=== PATIENT | male | born 1990 | race African-American/Black ===

== ENCOUNTER 2021-04-20 12:08 | Inpatient (IN) ==
[2021-04-21] MEDS ORDERED: SODIUM CHLORIDE 0.9% 1,550 ML IV ONE (01:14)
[2021-04-21] MEDS ORDERED: VANCOMYCIN INJ 1,250 MG in SODIUM CHLORIDE 0.9% 250 ML IV STA (01:15)
[2021-04-21] MEDS ORDERED: PIPERACILLIN/TAZOBACTAM 4.5 MG in SODIUM CHLORIDE 0.9% 100 ML IV STA (01:16)
[2021-04-21] MEDS ORDERED: CLINDAMYCIN INJ 900 MG/50 ML PREMIX IV STA (01:31)
[2021-04-21] MEDS ORDERED: MORPHINE 2 MG/1 ML SYRINGE IV STA (01:58)
[2021-04-21 02:09] LABS: Basophils % 0.1 % (0.0-0.8); Hematocrit 31.2 VOL% (42.0-52.0); Hemoglobin 9.4 GM/DL (14.0-18.0); Immature Granulocytes % 1.2 %; Immature Granulocytes Absolute 0.36 #; Lymphocytes # 2.1 10*3/uL (1.4-4.0); Mean Corpuscular HGB Conc 30.1 GM/DL (32-36); Mean Corpuscular Volume 84.6 FL (87-102); Mean Platelet Volume 9.3 FL (9.6-12.0); Monocytes % 7.2 % (1.7-12.7); Neutrophils % 84.5 % (38.7-73.9); Platelet Count 422 T/CUMM (130-400); Red Blood Count 3.69 MC/CUMM (3.8-5.5); Red Cell Distribution Width 13.4 % (9.3-17.3); White Blood Count 30.6 T/CUMM (4-12)
[2021-04-21 02:28] LABS: Band Neutrophils 1 % (0-10); Lymphocytes 9 % (20-55); Platelet Estimate Increased; Segmented Neutrophils 85 % (50-85); Total Cells Counted 100
[2021-04-21 02:29] LABS: Hypochromia Slight; Microcytosis Slight
[2021-04-21 02:33] LABS: Alanine Aminotransferase 16 U/L (16-61); Albumin 1.8 G/DL (3.4-5.0); Alkaline Phosphatase 178 U/L (45-117); Aspartate Amino Transferase 15 U/L (0-37); Bilirubin,Total < 0.39 MG/DL (0.20-1.00); Blood Urea Nitrogen 18 MG/DL (7-18); Calcium 9.4 MG/DL (8.5-10.1); Carbon Dioxide 18 MMOL/L (21-32); Estimated Glom Filtration Rate 76 ML/MIN; Glucose 315 MG/DL (74-106); Osmolality,Calculated 275.7 MOS/KG (273-304); Potassium 4.3 MMOL/L (3.5-5.1); Sodium 131 MMOL/L (136-145); Total Protein 8.2 G/DL (6.4-8.2)
[2021-04-21] MEDS ORDERED: GLUCAGON 1 MG VIAL IM PRN (03:03)
[2021-04-21] MEDS ORDERED: DEXTROSE 50% 25 GM/50 ML SYRINGE IV PRN (03:19)
[2021-04-21] MEDS: SODIUM CHLORIDE 0.9% 1,000 ML IV SCH ×3 (03:47→23:56)
[2021-04-21 05:07] LABS: INR 1.3; Partial Thromboplastin Time 30.5 SECS (23.8-32.1)
[2021-04-21] MEDS ORDERED: PHENYLEPHRINE 1 MG/10 ML SYRINGE IV ONE ×2 (09:11→16:29)
[2021-04-21] MEDS ORDERED: ALBUMIN 5% 12.5 GM/250 ML VIAL IV ONE (09:11)
[2021-04-21] MEDS ORDERED: PHENYLEPHRINE DRIP 20 MG/250 ML PREMIX IV ONE (09:11)
[2021-04-21] MEDS ORDERED: MIDAZOLAM 2 MG/2 ML VIAL ONE (09:28)
[2021-04-21] MEDS ORDERED: ROCURONIUM 50 MG/5 ML VIAL IV ONE (09:28)
[2021-04-21] MEDS ORDERED: LIDOCAINE 2% 5 ML VIAL ONE ×2 (09:28→16:29)
[2021-04-21] MEDS ORDERED: SUCCINYLCHOLINE 200 MG/10 ML VIAL ONE (09:28)
[2021-04-21] MEDS ORDERED: propofoL 200 MG/20 ML VIAL IV ONE ×2 (09:28→16:29)
[2021-04-21] MEDS ORDERED: fentaNYL 100 MCG/2 ML VIAL ONE (09:28)
[2021-04-21] MEDS: PANTOPRAZOLE 40 MG TABLET PO SCH (09:32)
[2021-04-21] MEDS: INSULIN REGULAR 100 UNIT/ML SUBCUT SCH ×4 (09:34→21:40)
[2021-04-21] MEDS ORDERED: FAMOTIDINE 20 MG/2 ML VIAL IV ONE (10:01)
[2021-04-21] MEDS ORDERED: SODIUM BICARBONATE 50 MEQ/50 ML VIAL IV ONE (10:10)
[2021-04-21] MEDS ORDERED: KETAMINE 500 MG/10 ML VIAL ONE (10:16)
[2021-04-21] MEDS ORDERED: SODIUM CHLORIDE 0.9% 1,000 ML IV ONE ×3 (11:30→16:04)
[2021-04-21] MEDS ORDERED: SEVOFLURANE 1 UNIT/15 MINUTE INH ONE (11:30)
[2021-04-21] MEDS ORDERED: ONDANSETRON 4 MG/2 ML VIAL ONE (11:30)
[2021-04-21] MEDS ORDERED: SUGAMMADEX 200 MG/2 ML VIAL IV ONE (11:37)
[2021-04-21 12:53] LABS: Basophils % 0.2 % (0.0-0.8); Eosinophils % 0.1 % (0.00-10.9); Hematocrit 26.2 VOL% (42.0-52.0); Hemoglobin 7.8 GM/DL (14.0-18.0); Immature Granulocytes % 1.9 %; Immature Granulocytes Absolute 0.47 #; Lymphocytes # 1.7 10*3/uL (1.4-4.0); Mean Corpuscular HGB Conc 29.8 GM/DL (32-36); Mean Corpuscular Volume 86.5 FL (87-102); Monocytes % 5.4 % (1.7-12.7); Neutrophils % 85.4 % (38.7-73.9); Platelet Count 336 T/CUMM (130-400); Red Blood Count 3.03 MC/CUMM (3.8-5.5); Red Cell Distribution Width 13.6 % (9.3-17.3); White Blood Count 24.9 T/CUMM (4-12)
[2021-04-21 13:07] LABS: Calcium 7.8 MG/DL (8.5-10.1); Osmolality,Calculated 283.8 MOS/KG (273-304); Potassium 4.1 MMOL/L (3.5-5.1)
[2021-04-21 13:15] LABS: Band Neutrophils 16 % (0-10); Lymphocytes 7 % (20-55); Platelet Estimate Normal; Segmented Neutrophils 68 % (50-85); Total Cells Counted 100
[2021-04-21 13:16] LABS: Anisocytosis Slight; Burr Cells 1+
[2021-04-21 13:24] LABS: Macrocytosis Slight
[2021-04-21] MEDS: MORPHINE 2 MG/1 ML SYRINGE IV PRN (14:24)
[2021-04-21] MEDS ORDERED: LIDOCAINE 2% TOP JELLY 20 ML VIAL INTRAURETH ONE (15:29)
[2021-04-21] MEDS: HYDROmorphone 2 MG/1 ML VIAL IV PRN (16:23)
[2021-04-21] MEDS: VANCOMYCIN INJ 750 MG in SODIUM CHLORIDE 0.9% 250 ML IV SCH (17:06)
[2021-04-21] MEDS: PIPERACILLIN/TAZOBACTAM 3,375 MG in SODIUM CHLORIDE 0.9% 100 ML IV SCH (18:18)
[2021-04-21 18:24] LABS: Bilirubin,Urine Negative (Negative); Blood, Urine Small mg/dL (Negative); Glucose,Urine (UA) Negative (Negative); Ketones,Urine 5 mg/dL (Negative); Mucus,Urine Few /LPF (Occasional); Nitrite,Urine Negative (Negative); Protein,Urine 30 MG/DL; RBC,Urine 853 /HPF (0-4); Urine Appearance CLOUDY (Clear); Urine Color Yellow (Yellow); Urine Specific Gravity 1.054 (1.001-1.035); Urine Urobilinogen < 2.0 EU/DL (<2.0)
[2021-04-21] MEDS ORDERED: LACTATED RINGERS 500 ML IV ONE (20:24)
[2021-04-21] MEDS: KETOCONAZOLE 2% CREAM 30 GM TUBE TOP SCH (21:45)
[2021-04-22] MEDS: PIPERACILLIN/TAZOBACTAM 3,375 MG in SODIUM CHLORIDE 0.9% 100 ML IV SCH ×3 (01:08→18:24)
[2021-04-22] MEDS ORDERED: LACTATED RINGERS 500 ML IV ONE (03:25)
[2021-04-22] MEDS: VANCOMYCIN INJ 750 MG in SODIUM CHLORIDE 0.9% 250 ML IV SCH ×2 (05:12→17:17)
[2021-04-22] MEDS: PHENYLEPHRINE DRIP 40 MG/250 ML PREMIX IV PRN (05:57)
[2021-04-22 06:06] LABS: Basophils % 0.2 % (0.0-0.8); Eosinophils % 0.1 % (0.00-10.9); Hematocrit 24.2 VOL% (42.0-52.0); Hemoglobin 7.3 GM/DL (14.0-18.0); Immature Granulocytes % 2.3 %; Immature Granulocytes Absolute 0.56 #; Lymphocytes # 2.1 10*3/uL (1.4-4.0); Lymphocytes % 8.5 % (21.2-54.2); Mean Corpuscular HGB Conc 30.2 GM/DL (32-36); Mean Corpuscular Volume 86.4 FL (87-102); Mean Platelet Volume 9.8 FL (9.6-12.0); Neutrophils % 81.9 % (38.7-73.9); Platelet Count 336 T/CUMM (130-400); Red Cell Distribution Width 13.7 % (9.3-17.3); White Blood Count 24.8 T/CUMM (4-12)
[2021-04-22 06:32] LABS: Anisocytosis Slight; Band Neutrophils 16 % (0-10); Burr Cells 1+; Lymphocytes 12 % (20-55); Metamyelocytes 2 %; Platelet Estimate Normal; Segmented Neutrophils 64 % (50-85); Total Cells Counted 100
[2021-04-22 06:33] LABS: Calcium 7.8 MG/DL (8.5-10.1); Osmolality,Calculated 279.3 MOS/KG (273-304); Potassium 3.5 MMOL/L (3.5-5.1)
[2021-04-22] MEDS: SODIUM CHLORIDE 0.9% 1,000 ML IV SCH ×2 (06:47→21:33)
[2021-04-22] MEDS ORDERED: POTASSIUM CHLORIDE RIDER 10 MEQ/100 ML PREMIX IV PRN (07:02)
[2021-04-22] MEDS: PANTOPRAZOLE 40 MG TABLET PO SCH (08:18)
[2021-04-22] MEDS: KETOCONAZOLE 2% CREAM 30 GM TUBE TOP SCH ×2 (08:19→21:28)
[2021-04-22] MEDS: MAGNESIUM SULF RIDER 2 GM/50 ML PREMIX IV PRN (08:19)
[2021-04-22] MEDS ORDERED: diphenhydrAMINE 50 MG/1 ML VIAL IV ONE (08:40)
[2021-04-22] MEDS: INSULIN REGULAR 100 UNIT/ML SUBCUT SCH ×4 (09:13→21:28)
[2021-04-22] MEDS: HYDROmorphone 2 MG/1 ML VIAL IV PRN ×4 (09:45→22:20)
[2021-04-22] MEDS: ACETAMINOPHEN 325 MG TABLET PO PRN (11:19)
[2021-04-22] MEDS ORDERED: SKIN HEALING OINT (AQUAPHOR) 50 GM TUBE TOP PRN (11:56)
[2021-04-22] MEDS: SODIUM HYPOCHLORITE 0.25% IRRIG 473 ML BOTTLE TOP SCH ×2 (15:53→21:27)
[2021-04-22] MEDS ORDERED: DIAZEPAM 5 MG TABLET PO ONE (21:10)
[2021-04-23] MEDS: PIPERACILLIN/TAZOBACTAM 3,375 MG in SODIUM CHLORIDE 0.9% 100 ML IV SCH ×3 (03:05→17:33)
[2021-04-23] MEDS: SODIUM CHLORIDE 0.9% 1,000 ML IV SCH (03:09)
[2021-04-23] MEDS: HYDROmorphone 2 MG/1 ML VIAL IV PRN (05:05)
[2021-04-23] MEDS ORDERED: NALOXONE 0.4 MG/ML VIAL ONE (05:30)
[2021-04-23 05:50] LABS: Basophils # 0.1 10*3/uL (0.0-0.2); Basophils % 0.2 % (0.0-0.8); Eosinophils # 0.1 10*3/uL (0.0-0.87); Eosinophils % 0.3 % (0.00-10.9); Hematocrit 27.6 VOL% (42.0-52.0); Hemoglobin 8.2 GM/DL (14.0-18.0); Immature Granulocytes % 1.4 %; Lymphocytes # 2.1 10*3/uL (1.4-4.0); Lymphocytes % 6.1 % (21.2-54.2); Mean Corpuscular HGB Conc 29.7 GM/DL (32-36); Mean Corpuscular Volume 86.3 FL (87-102); Mean Platelet Volume 9.5 FL (9.6-12.0); Platelet Count 483 T/CUMM (130-400); Red Cell Distribution Width 14.2 % (9.3-17.3); White Blood Count 34.6 T/CUMM (4-12)
[2021-04-23] MEDS: VANCOMYCIN INJ 750 MG in SODIUM CHLORIDE 0.9% 250 ML IV SCH ×2 (05:50→18:10)
[2021-04-23 06:00] LABS: Calcium 8.1 MG/DL (8.5-10.1); Potassium 3.3 MMOL/L (3.5-5.1)
[2021-04-23] MEDS: MAGNESIUM SULF RIDER 2 GM/50 ML PREMIX IV PRN (06:10)
[2021-04-23 06:25] LABS: Band Neutrophils 2 % (0-10); Lymphocytes 5 % (20-55); Platelet Estimate Increased; Segmented Neutrophils 86 % (50-85); Total Cells Counted 100
[2021-04-23 06:26] LABS: Hypochromia Slight; Microcytosis Slight
[2021-04-23] MEDS ORDERED: HYDROmorphone 2 MG/1 ML VIAL IV ONE (07:35)
[2021-04-23] MEDS ORDERED: NOREPINEPHRINE 8 MG in SODIUM CHLORIDE 0.9% 242 ML IV PRN (07:41)
[2021-04-23] MEDS ORDERED: LACTATED RINGERS 1,000 ML IV ONE ×2 (07:41→08:06)
[2021-04-23] MEDS: INSULIN REGULAR 100 UNIT/ML SUBCUT SCH ×4 (07:44→20:04)
[2021-04-23] MEDS: SODIUM HYPOCHLORITE 0.25% IRRIG 473 ML BOTTLE TOP SCH (08:09)
[2021-04-23] MEDS: KETOCONAZOLE 2% CREAM 30 GM TUBE TOP SCH ×2 (08:09→21:15)
[2021-04-23] MEDS: PHENYLEPHRINE DRIP 40 MG/250 ML PREMIX IV PRN (08:37)
[2021-04-23] MEDS: CLINDAMYCIN INJ 600 MG/50 ML PREMIX IV SCH ×2 (08:55→16:04)
[2021-04-23] MEDS: PANTOPRAZOLE 40 MG TABLET PO SCH (08:56)
[2021-04-23] MEDS: LACTATED RINGERS 1,000 ML IV SCH ×2 (09:12→16:03)
[2021-04-23] MEDS: HYDROCORTISONE 100 MG VIAL IV SCH (18:26)
[2021-04-23] MEDS: CHOLESTYRAMINE/ASPARTAME 4 GM PACK PO SCH (22:59)
[2021-04-24] MEDS: CLINDAMYCIN INJ 600 MG/50 ML PREMIX IV SCH ×3 (00:40→16:07)
[2021-04-24] MEDS: LACTATED RINGERS 1,000 ML IV SCH ×3 (02:40→21:30)
[2021-04-24] MEDS: PIPERACILLIN/TAZOBACTAM 3,375 MG in SODIUM CHLORIDE 0.9% 100 ML IV SCH ×3 (02:50→17:21)
[2021-04-24] MEDS: HYDROCORTISONE 100 MG VIAL IV SCH ×3 (03:25→17:50)
[2021-04-24 04:56] LABS: Basophils % 0.1 % (0.0-0.8); Hematocrit 26.9 VOL% (42.0-52.0); Immature Granulocytes % 1.2 %; Immature Granulocytes Absolute 0.44 #; Lymphocytes # 1.6 10*3/uL (1.4-4.0); Lymphocytes % 4.5 % (21.2-54.2); Mean Corpuscular HGB Conc 29.7 GM/DL (32-36); Mean Corpuscular Volume 85.7 FL (87-102); Mean Platelet Volume 9.7 FL (9.6-12.0); Monocytes % 1.8 % (1.7-12.7); Neutrophils % 92.4 % (38.7-73.9); Platelet Count 486 T/CUMM (130-400); Red Blood Count 3.14 MC/CUMM (3.8-5.5); Red Cell Distribution Width 14.4 % (9.3-17.3); White Blood Count 36.5 T/CUMM (4-12)
[2021-04-24 05:00] LABS: Calcium 8.1 MG/DL (8.5-10.1); Osmolality,Calculated 286.3 MOS/KG (273-304); Potassium 3.1 MMOL/L (3.5-5.1)
[2021-04-24 05:42] LABS: ABG Base Excess -9.6 MMOL/L (-2.5-2.5); ABG HCO3 16.6 MMOL/L (20-26); ABG Oxygen Saturation 93.3 % (95-100); ABG PCO2 29.4 MM HG (35-48); ABG PH 7.328 (7.35-7.45); ABG PO2 72.7 MM HG (80-95); ABG TCO2 14.5 MMOL/L (23-27)
[2021-04-24] MEDS: VANCOMYCIN INJ 750 MG in SODIUM CHLORIDE 0.9% 250 ML IV SCH ×2 (06:39→17:20)
[2021-04-24] MEDS ORDERED: POTASSIUM CHLORIDE 20 MEQ TABLET PO ONE (06:47)
[2021-04-24 06:56] LABS: % Iron Saturation 28.2 % (18-50); Ferritin 641.9 ng/mL (26-388)
[2021-04-24] MEDS: MAGNESIUM SULF RIDER 2 GM/50 ML PREMIX IV PRN (07:14)
[2021-04-24 08:49] LABS: Lymphocytes 8 % (20-55); Platelet Estimate Normal; Segmented Neutrophils 89 % (50-85); Total Cells Counted 100
[2021-04-24 08:50] LABS: Burr Cells Few; Hypochromia 2+; Polychromasia Slight; Schistocytes Few
[2021-04-24] MEDS ORDERED: DEXTROSE 50% 25 GM/50 ML SYRINGE IV PRN (08:50)
[2021-04-24] MEDS: INSULIN REGULAR 100 UNIT/ML SUBCUT SCH ×4 (08:55→21:15)
[2021-04-24] MEDS: CHOLESTYRAMINE/ASPARTAME 4 GM PACK PO SCH ×2 (09:06→21:30)
[2021-04-24] MEDS: PANTOPRAZOLE 40 MG TABLET PO SCH (09:07)
[2021-04-24] MEDS: ERGOCALCIFEROL 50,000 UNIT CAPSULE PO SCH (09:07)
[2021-04-24] MEDS: HYDROmorphone 2 MG/1 ML VIAL IV PRN ×2 (09:53→14:27)
[2021-04-24] MEDS: INSULIN GLARGINE 100 UNIT/ML SUBCUT SCH (12:59)
[2021-04-24] MEDS: SODIUM HYPOCHLORITE 0.25% IRRIG 473 ML BOTTLE TOP SCH (14:42)
[2021-04-24] MEDS: KETOCONAZOLE 2% CREAM 30 GM TUBE TOP SCH ×2 (14:42→21:16)
[2021-04-24] MEDS: MORPHINE 2 MG/1 ML SYRINGE IV PRN (16:06)
[2021-04-24] MEDS ORDERED: LIDOCAINE 2% TOP JELLY 20 ML VIAL INTRAURETH ONE (17:53)
[2021-04-24] MEDS ORDERED: LORazepam 2 MG/1 ML VIAL ONE (18:35)
[2021-04-24] MEDS ORDERED: LORazepam 2 MG/1 ML VIAL IV ONE (18:40)
[2021-04-24] MEDS: PHENYLEPHRINE DRIP 40 MG/250 ML PREMIX IV PRN (21:29)
[2021-04-25] MEDS: CLINDAMYCIN INJ 600 MG/50 ML PREMIX IV SCH ×4 (00:13→23:33)
[2021-04-25] MEDS: PIPERACILLIN/TAZOBACTAM 3,375 MG in SODIUM CHLORIDE 0.9% 100 ML IV SCH ×3 (02:13→17:35)
[2021-04-25] MEDS: HYDROCORTISONE 100 MG VIAL IV SCH ×3 (02:14→17:37)
[2021-04-25] MEDS: VANCOMYCIN INJ 750 MG in SODIUM CHLORIDE 0.9% 250 ML IV SCH (05:45)
[2021-04-25] MEDS: LACTATED RINGERS 1,000 ML IV SCH (07:45)
[2021-04-25 07:55] LABS: Basophils % 0.1 % (0.0-0.8); Hemoglobin 8.7 GM/DL (14.0-18.0); Immature Granulocytes % 2.1 %; Immature Granulocytes Absolute 0.76 #; Lymphocytes % 5.5 % (21.2-54.2); Mean Corpuscular Volume 84.1 FL (87-102); Mean Platelet Volume 8.9 FL (9.6-12.0); Monocytes % 2.5 % (1.7-12.7); Neutrophils % 89.8 % (38.7-73.9); Platelet Count 579 T/CUMM (130-400); Red Blood Count 3.45 MC/CUMM (3.8-5.5); Red Cell Distribution Width 14.3 % (9.3-17.3); White Blood Count 36.3 T/CUMM (4-12)
[2021-04-25 08:19] LABS: Alanine Aminotransferase 14 U/L (16-61); Albumin 1.1 G/DL (3.4-5.0); Alkaline Phosphatase 161 U/L (45-117); Aspartate Amino Transferase 8 U/L (0-37); Bilirubin,Total < 0.39 MG/DL (0.20-1.00); Blood Urea Nitrogen 13 MG/DL (7-18); Carbon Dioxide 20 MMOL/L (21-32); Estimated Glom Filtration Rate 154 ML/MIN; Glucose 125 MG/DL (74-106); Osmolality,Calculated 283.1 MOS/KG (273-304); Potassium 2.8 MMOL/L (3.5-5.1); Sodium 142 MMOL/L (136-145); Total Protein 5.9 G/DL (6.4-8.2)
[2021-04-25] MEDS ORDERED: MAGNESIUM SULF RIDER 2 GM/50 ML PREMIX IV ONE (08:33)
[2021-04-25] MEDS: KETOCONAZOLE 2% CREAM 30 GM TUBE TOP SCH ×2 (08:55→20:49)
[2021-04-25] MEDS: SODIUM HYPOCHLORITE 0.25% IRRIG 473 ML BOTTLE TOP SCH (08:55)
[2021-04-25] MEDS: INSULIN REGULAR 100 UNIT/ML SUBCUT SCH ×4 (09:15→20:49)
[2021-04-25] MEDS ORDERED: POTASSIUM CHLORIDE INJ 20 MEQ in LACTATED RINGERS 1,000 ML IV SCH (10:00)
[2021-04-25] MEDS: PANTOPRAZOLE 40 MG TABLET PO SCH (10:10)
[2021-04-25] MEDS: CHOLESTYRAMINE/ASPARTAME 4 GM PACK PO SCH ×2 (10:10→22:45)
[2021-04-25] MEDS: OXYBUTYNIN XL 10 MG TABLET PO SCH (10:10)
[2021-04-25] MEDS: POTASSIUM CHLORIDE 20 MEQ TABLET PO SCH ×2 (10:10→13:02)
[2021-04-25] MEDS: INSULIN GLARGINE 100 UNIT/ML SUBCUT SCH (10:10)
[2021-04-25 10:47] LABS: Lymphocytes 2 % (20-55); Segmented Neutrophils 98 % (50-85); Total Cells Counted 100
[2021-04-25 10:48] LABS: Hypochromia 2+; Microcytosis 1+; Platelet Estimate Increased; Polychromasia Slight; Tear Drop Cells Few
[2021-04-25] MEDS: HYDROmorphone 2 MG/1 ML VIAL IV PRN ×2 (16:09→20:45)
[2021-04-25 16:29] LABS: Calcium 7.7 MG/DL (8.5-10.1); Osmolality,Calculated 291.8 MOS/KG (273-304)
[2021-04-25] MEDS: POTASSIUM CHLORIDE 20 MEQ TABLET PO PRN ×3 (17:59→23:33)
[2021-04-26] MEDS: HYDROCORTISONE 100 MG VIAL IV SCH ×3 (02:00→18:31)
[2021-04-26] MEDS: POTASSIUM CHLORIDE 20 MEQ TABLET PO PRN ×4 (02:02→15:45)
[2021-04-26] MEDS: PIPERACILLIN/TAZOBACTAM 3,375 MG in SODIUM CHLORIDE 0.9% 100 ML IV SCH ×3 (02:03→18:14)
[2021-04-26 04:48] LABS: Basophils % 0.1 % (0.0-0.8); Hemoglobin 8.4 GM/DL (14.0-18.0); Immature Granulocytes % 1.5 %; Lymphocytes # 1.7 10*3/uL (1.4-4.0); Lymphocytes % 6.4 % (21.2-54.2); Mean Corpuscular Volume 84.8 FL (87-102); Mean Platelet Volume 8.6 FL (9.6-12.0); Monocytes % 3.5 % (1.7-12.7); Neutrophils % 88.5 % (38.7-73.9); Platelet Count 572 T/CUMM (130-400); Red Cell Distribution Width 14.5 % (9.3-17.3); White Blood Count 26.4 T/CUMM (4-12)
[2021-04-26 05:04] LABS: Calcium 7.7 MG/DL (8.5-10.1); Osmolality,Calculated 298.4 MOS/KG (273-304); Potassium 3.3 MMOL/L (3.5-5.1)
[2021-04-26 05:06] LABS: Hypochromia 1+; Lymphocytes 4 % (20-55); Microcytosis 1+; Platelet Estimate Adequate; Segmented Neutrophils 93 % (50-85); Total Cells Counted 100
[2021-04-26] MEDS ORDERED: INSULIN GLARGINE 100 UNIT/ML SUBCUT SCH (09:00)
[2021-04-26] MEDS: PANTOPRAZOLE 40 MG TABLET PO SCH (09:30)
[2021-04-26] MEDS: OXYBUTYNIN XL 10 MG TABLET PO SCH (09:30)
[2021-04-26] MEDS: INSULIN REGULAR 100 UNIT/ML SUBCUT SCH ×4 (09:30→21:30)
[2021-04-26] MEDS: CHOLESTYRAMINE/ASPARTAME 4 GM PACK PO SCH ×2 (09:30→21:30)
[2021-04-26] MEDS: KETOCONAZOLE 2% CREAM 30 GM TUBE TOP SCH ×2 (09:30→23:55)
[2021-04-26] MEDS: CLINDAMYCIN INJ 600 MG/50 ML PREMIX IV SCH ×2 (09:32→16:05)
[2021-04-26] MEDS: MAGNESIUM SULF RIDER 2 GM/50 ML PREMIX IV PRN (10:05)
[2021-04-26] MEDS: SODIUM HYPOCHLORITE 0.25% IRRIG 473 ML BOTTLE TOP SCH (11:00)
[2021-04-26] MEDS: ONDANSETRON 4 MG/2 ML VIAL IV PRN (21:29)
[2021-04-26] MEDS: ACETAMINOPHEN 325 MG TABLET PO PRN (23:10)
[2021-04-27] MEDS: HYDROCORTISONE 100 MG VIAL IV SCH ×2 (03:05→14:00)
[2021-04-27] MEDS: PIPERACILLIN/TAZOBACTAM 3,375 MG in SODIUM CHLORIDE 0.9% 100 ML IV SCH ×3 (03:05→18:24)
[2021-04-27] MEDS: CLINDAMYCIN INJ 600 MG/50 ML PREMIX IV SCH ×2 (03:05→09:52)
[2021-04-27] MEDS: ONDANSETRON 4 MG/2 ML VIAL IV PRN (03:52)
[2021-04-27 04:00] LABS: Basophils % 0.1 % (0.0-0.8); Eosinophils % 0.1 % (0.00-10.9); Hematocrit 25.5 VOL% (42.0-52.0); Hemoglobin 7.5 GM/DL (14.0-18.0); Immature Granulocytes Absolute 0.18 #; Lymphocytes # 2.2 10*3/uL (1.4-4.0); Lymphocytes % 11.5 % (21.2-54.2); Mean Corpuscular HGB Conc 29.4 GM/DL (32-36); Mean Corpuscular Volume 86.7 FL (87-102); Mean Platelet Volume 8.3 FL (9.6-12.0); Monocytes % 6.2 % (1.7-12.7); Neutrophils % 81.1 % (38.7-73.9); Platelet Count 468 T/CUMM (130-400); Red Blood Count 2.94 MC/CUMM (3.8-5.5); Red Cell Distribution Width 14.7 % (9.3-17.3); White Blood Count 18.8 T/CUMM (4-12)
[2021-04-27 04:27] LABS: Calcium 7.6 MG/DL (8.5-10.1); Osmolality,Calculated 298.4 MOS/KG (273-304); Potassium 3.4 MMOL/L (3.5-5.1)
[2021-04-27] MEDS: POTASSIUM CHLORIDE 20 MEQ TABLET PO PRN ×3 (06:42→18:24)
[2021-04-27] MEDS: MAGNESIUM SULF RIDER 2 GM/50 ML PREMIX IV PRN (07:00)
[2021-04-27] MEDS: SODIUM HYPOCHLORITE 0.25% IRRIG 473 ML BOTTLE TOP SCH (08:50)
[2021-04-27] MEDS: KETOCONAZOLE 2% CREAM 30 GM TUBE TOP SCH ×2 (08:55→20:22)
[2021-04-27] MEDS: INSULIN REGULAR 100 UNIT/ML SUBCUT SCH ×4 (09:41→20:21)
[2021-04-27] MEDS: OXYBUTYNIN XL 10 MG TABLET PO SCH (09:51)
[2021-04-27] MEDS: CHOLESTYRAMINE/ASPARTAME 4 GM PACK PO SCH ×2 (09:52→22:30)
[2021-04-27] MEDS: PANTOPRAZOLE 40 MG TABLET PO SCH (09:52)
[2021-04-27] MEDS: INSULIN GLARGINE 100 UNIT/ML SUBCUT SCH (09:52)
[2021-04-27] MEDS: ACETAMINOPHEN 325 MG TABLET PO PRN (22:29)
[2021-04-28] MEDS: MORPHINE 2 MG/1 ML SYRINGE IV PRN (00:24)
[2021-04-28] MEDS: HYDROCORTISONE 100 MG VIAL IV SCH ×2 (02:00→13:40)
[2021-04-28] MEDS: ZINC OXIDE PASTE 113 GM TUBE TOP PRN ×2 (02:03→08:50)
[2021-04-28] MEDS: PIPERACILLIN/TAZOBACTAM 3,375 MG in SODIUM CHLORIDE 0.9% 100 ML IV SCH ×3 (02:03→18:45)
[2021-04-28 04:51] LABS: Basophils % 0.1 % (0.0-0.8); Eosinophils # 0.1 10*3/uL (0.0-0.87); Eosinophils % 0.6 % (0.00-10.9); Hematocrit 27.7 VOL% (42.0-52.0); Hemoglobin 8.1 GM/DL (14.0-18.0); Immature Granulocytes % 0.9 %; Immature Granulocytes Absolute 0.15 #; Lymphocytes % 12.4 % (21.2-54.2); Mean Corpuscular HGB Conc 29.2 GM/DL (32-36); Mean Corpuscular Volume 85.8 FL (87-102); Mean Platelet Volume 8.5 FL (9.6-12.0); Monocytes % 4.4 % (1.7-12.7); Neutrophils % 81.6 % (38.7-73.9); Platelet Count 494 T/CUMM (130-400); Red Blood Count 3.23 MC/CUMM (3.8-5.5); White Blood Count 15.9 T/CUMM (4-12)
[2021-04-28 05:07] LABS: Calcium 7.7 MG/DL (8.5-10.1); Osmolality,Calculated 293.6 MOS/KG (273-304); Potassium 3.6 MMOL/L (3.5-5.1)
[2021-04-28] MEDS: MAGNESIUM SULF RIDER 2 GM/50 ML PREMIX IV PRN (05:55)
[2021-04-28] MEDS: POTASSIUM CHLORIDE 20 MEQ TABLET PO PRN ×2 (05:57→09:37)
[2021-04-28] MEDS: INSULIN REGULAR 100 UNIT/ML SUBCUT SCH ×4 (07:51→20:26)
[2021-04-28] MEDS: SODIUM HYPOCHLORITE 0.25% IRRIG 473 ML BOTTLE TOP SCH (08:45)
[2021-04-28] MEDS: KETOCONAZOLE 2% CREAM 30 GM TUBE TOP SCH ×2 (08:50→21:48)
[2021-04-28] MEDS: PANTOPRAZOLE 40 MG TABLET PO SCH (09:36)
[2021-04-28] MEDS: CHOLESTYRAMINE/ASPARTAME 4 GM PACK PO SCH ×2 (09:36→21:37)
[2021-04-28] MEDS: OXYBUTYNIN XL 10 MG TABLET PO SCH (09:36)
[2021-04-28] MEDS: INSULIN GLARGINE 100 UNIT/ML SUBCUT SCH (09:37)
[2021-04-28] MEDS: SERTRALINE 25 MG TABLET PO SCH (11:27)
[2021-04-29] MEDS: HYDROCORTISONE 100 MG VIAL IV SCH ×2 (02:12→13:47)
[2021-04-29] MEDS: MORPHINE 2 MG/1 ML SYRINGE IV PRN ×2 (05:19→12:28)
[2021-04-29] MEDS: INSULIN REGULAR 100 UNIT/ML SUBCUT SCH ×4 (08:52→21:20)
[2021-04-29] MEDS: OXYBUTYNIN XL 10 MG TABLET PO SCH (10:00)
[2021-04-29] MEDS: CHOLESTYRAMINE/ASPARTAME 4 GM PACK PO SCH ×2 (10:00→21:21)
[2021-04-29] MEDS: PANTOPRAZOLE 40 MG TABLET PO SCH (10:00)
[2021-04-29] MEDS: INSULIN GLARGINE 100 UNIT/ML SUBCUT SCH (10:24)
[2021-04-29] MEDS: KETOCONAZOLE 2% CREAM 30 GM TUBE TOP SCH ×2 (10:25→21:20)
[2021-04-29] MEDS: SERTRALINE 25 MG TABLET PO SCH (10:30)
[2021-04-29] MEDS: SODIUM HYPOCHLORITE 0.25% IRRIG 473 ML BOTTLE TOP SCH (13:47)
[2021-04-29] MEDS ORDERED: metroNIDAZOLE INJ 500 MG/100 ML PREMIX IV SCH (14:00)
[2021-04-29] MEDS: metroNIDAZOLE 500 MG TABLET PO SCH ×2 (15:20→21:16)
[2021-04-29] MEDS: cefTRIAXone 1,000 MG in SODIUM CHLORIDE 0.9% 100 ML IV SCH (15:20)
[2021-04-30] MEDS: MORPHINE 2 MG/1 ML SYRINGE IV PRN ×2 (01:01→17:22)
[2021-04-30] MEDS: HYDROCORTISONE 100 MG VIAL IV SCH (01:02)
[2021-04-30 05:00] LABS: Basophils % 0.1 % (0.0-0.8); Eosinophils # 0.1 10*3/uL (0.0-0.87); Eosinophils % 0.4 % (0.00-10.9); Hematocrit 25.9 VOL% (42.0-52.0); Hemoglobin 7.4 GM/DL (14.0-18.0); Immature Granulocytes % 0.9 %; Immature Granulocytes Absolute 0.16 #; Lymphocytes # 2.5 10*3/uL (1.4-4.0); Lymphocytes % 13.2 % (21.2-54.2); Mean Corpuscular HGB Conc 28.6 GM/DL (32-36); Mean Corpuscular Volume 87.5 FL (87-102); Mean Platelet Volume 8.8 FL (9.6-12.0); Monocytes % 3.9 % (1.7-12.7); Neutrophils % 81.5 % (38.7-73.9); Platelet Count 466 T/CUMM (130-400); Red Blood Count 2.96 MC/CUMM (3.8-5.5); Red Cell Distribution Width 15.5 % (9.3-17.3); White Blood Count 18.5 T/CUMM (4-12)
[2021-04-30 05:17] LABS: Calcium 7.9 MG/DL (8.5-10.1); Osmolality,Calculated 286.1 MOS/KG (273-304); Potassium 3.6 MMOL/L (3.5-5.1)
[2021-04-30 05:31] LABS: Acanthocytes Few; Hypochromia 1+; Microcytosis 1+; Ovalocytes Slight
[2021-04-30 05:32] LABS: Platelet Estimate Increased
[2021-04-30] MEDS ORDERED: MAGNESIUM SULF RIDER 4 GM/100 ML PREMIX IV ONE (08:00)
[2021-04-30] MEDS: PANTOPRAZOLE 40 MG TABLET PO SCH (09:01)
[2021-04-30] MEDS: OXYBUTYNIN XL 10 MG TABLET PO SCH (09:01)
[2021-04-30] MEDS: CHOLESTYRAMINE/ASPARTAME 4 GM PACK PO SCH ×2 (09:01→21:36)
[2021-04-30] MEDS: metroNIDAZOLE 500 MG TABLET PO SCH ×3 (09:01→21:36)
[2021-04-30] MEDS: SERTRALINE 25 MG TABLET PO SCH (09:01)
[2021-04-30] MEDS: INSULIN GLARGINE 100 UNIT/ML SUBCUT SCH (09:28)
[2021-04-30] MEDS: INSULIN REGULAR 100 UNIT/ML SUBCUT SCH ×4 (09:28→21:37)
[2021-04-30] MEDS: SODIUM HYPOCHLORITE 0.25% IRRIG 473 ML BOTTLE TOP SCH (09:29)
[2021-04-30] MEDS: KETOCONAZOLE 2% CREAM 30 GM TUBE TOP SCH ×2 (10:32→21:36)
[2021-04-30] MEDS: cefTRIAXone 1,000 MG in SODIUM CHLORIDE 0.9% 100 ML IV SCH (13:43)
[2021-05-01] MEDS: KETOCONAZOLE 2% CREAM 30 GM TUBE TOP SCH ×3 (01:08→21:52)
[2021-05-01 05:40] LABS: Basophils % 0.1 % (0.0-0.8); Eosinophils # 0.2 10*3/uL (0.0-0.87); Eosinophils % 1.1 % (0.00-10.9); Hematocrit 24.8 VOL% (42.0-52.0); Hemoglobin 7.3 GM/DL (14.0-18.0); Immature Granulocytes % 0.6 %; Immature Granulocytes Absolute 0.09 #; Lymphocytes % 21.4 % (21.2-54.2); Mean Corpuscular HGB Conc 29.4 GM/DL (32-36); Mean Corpuscular Volume 86.1 FL (87-102); Monocytes % 6.8 % (1.7-12.7); Platelet Count 462 T/CUMM (130-400); Red Blood Count 2.88 MC/CUMM (3.8-5.5); Red Cell Distribution Width 15.6 % (9.3-17.3)
[2021-05-01 06:07] LABS: Calcium 7.5 MG/DL (8.5-10.1); Osmolality,Calculated 280.3 MOS/KG (273-304); Potassium 3.5 MMOL/L (3.5-5.1)
[2021-05-01] MEDS: INSULIN REGULAR 100 UNIT/ML SUBCUT SCH ×4 (07:13→21:51)
[2021-05-01] MEDS ORDERED: SODIUM CHLORIDE 0.9% 1,000 ML IV PRN (08:11)
[2021-05-01] MEDS: SODIUM HYPOCHLORITE 0.25% IRRIG 473 ML BOTTLE TOP SCH (09:58)
[2021-05-01] MEDS: CHOLESTYRAMINE/ASPARTAME 4 GM PACK PO SCH ×2 (09:59→21:16)
[2021-05-01] MEDS: INSULIN GLARGINE 100 UNIT/ML SUBCUT SCH (09:59)
[2021-05-01] MEDS: ERGOCALCIFEROL 50,000 UNIT CAPSULE PO SCH (10:00)
[2021-05-01] MEDS: PANTOPRAZOLE 40 MG TABLET PO SCH (10:00)
[2021-05-01] MEDS: metroNIDAZOLE 500 MG TABLET PO SCH ×3 (10:00→21:16)
[2021-05-01] MEDS: OXYBUTYNIN XL 10 MG TABLET PO SCH (10:00)
[2021-05-01] MEDS: SERTRALINE 25 MG TABLET PO SCH (10:01)
[2021-05-01] MEDS: cefTRIAXone 1,000 MG in SODIUM CHLORIDE 0.9% 100 ML IV SCH (15:38)
[2021-05-02 05:47] LABS: Basophils % 0.1 % (0.0-0.8); Eosinophils # 0.2 10*3/uL (0.0-0.87); Hematocrit 27.2 VOL% (42.0-52.0); Immature Granulocytes % 0.6 %; Immature Granulocytes Absolute 0.08 #; Lymphocytes # 3.4 10*3/uL (1.4-4.0); Lymphocytes % 23.2 % (21.2-54.2); Mean Corpuscular HGB Conc 29.4 GM/DL (32-36); Mean Corpuscular Volume 86.9 FL (87-102); Mean Platelet Volume 9.1 FL (9.6-12.0); Monocytes % 6.6 % (1.7-12.7); Neutrophils % 68.5 % (38.7-73.9); Platelet Count 402 T/CUMM (130-400); Red Blood Count 3.13 MC/CUMM (3.8-5.5); Red Cell Distribution Width 15.4 % (9.3-17.3); White Blood Count 14.5 T/CUMM (4-12)
[2021-05-02 06:23] LABS: Calcium 7.7 MG/DL (8.5-10.1); Potassium 3.3 MMOL/L (3.5-5.1)
[2021-05-02] MEDS: INSULIN REGULAR 100 UNIT/ML SUBCUT SCH ×4 (07:16→23:28)
[2021-05-02] MEDS ORDERED: MAGNESIUM SULF RIDER 4 GM/100 ML PREMIX IV ONE (08:09)
[2021-05-02] MEDS: PANTOPRAZOLE 40 MG TABLET PO SCH (09:12)
[2021-05-02] MEDS: INSULIN GLARGINE 100 UNIT/ML SUBCUT SCH (09:12)
[2021-05-02] MEDS: POTASSIUM CHLORIDE 20 MEQ TABLET PO PRN (09:12)
[2021-05-02] MEDS: OXYBUTYNIN XL 10 MG TABLET PO SCH (09:12)
[2021-05-02] MEDS: metroNIDAZOLE 500 MG TABLET PO SCH ×3 (09:12→21:36)
[2021-05-02] MEDS: SODIUM HYPOCHLORITE 0.25% IRRIG 473 ML BOTTLE TOP SCH (09:12)
[2021-05-02] MEDS: SERTRALINE 25 MG TABLET PO SCH (09:12)
[2021-05-02] MEDS: KETOCONAZOLE 2% CREAM 30 GM TUBE TOP SCH ×2 (09:13→21:34)
[2021-05-02] MEDS: CHOLESTYRAMINE/ASPARTAME 4 GM PACK PO SCH ×2 (09:13→21:32)
[2021-05-02] MEDS: cefTRIAXone 1,000 MG in SODIUM CHLORIDE 0.9% 100 ML IV SCH (13:05)
[2021-05-02] MEDS: ACETAMINOPHEN 325 MG TABLET PO PRN (21:34)
[2021-05-03 05:06] LABS: Basophils % 0.2 % (0.0-0.8); Eosinophils # 0.2 10*3/uL (0.0-0.87); Hematocrit 27.9 VOL% (42.0-52.0); Hemoglobin 8.4 GM/DL (14.0-18.0); Immature Granulocytes % 0.6 %; Immature Granulocytes Absolute 0.11 #; Lymphocytes # 2.8 10*3/uL (1.4-4.0); Lymphocytes % 16.2 % (21.2-54.2); Mean Corpuscular HGB Conc 30.1 GM/DL (32-36); Mean Corpuscular Volume 86.6 FL (87-102); Mean Platelet Volume 9.3 FL (9.6-12.0); Monocytes % 6.4 % (1.7-12.7); Neutrophils % 75.6 % (38.7-73.9); Platelet Count 405 T/CUMM (130-400); Red Blood Count 3.22 MC/CUMM (3.8-5.5); Red Cell Distribution Width 15.5 % (9.3-17.3); White Blood Count 17.3 T/CUMM (4-12)
[2021-05-03 05:31] LABS: Calcium 7.7 MG/DL (8.5-10.1); Osmolality,Calculated 281.1 MOS/KG (273-304); Potassium 3.2 MMOL/L (3.5-5.1)
[2021-05-03] MEDS ORDERED: MAGNESIUM SULF RIDER 4 GM/100 ML PREMIX IV ONE (08:30)
[2021-05-03] MEDS ORDERED: POTASSIUM CHLORIDE 20 MEQ TABLET PO ONE (09:30)
[2021-05-03] MEDS: MAGNESIUM SULF RIDER 2 GM/50 ML PREMIX IV PRN (10:00)
[2021-05-03] MEDS: INSULIN REGULAR 100 UNIT/ML SUBCUT SCH ×4 (10:48→21:08)
[2021-05-03] MEDS: KETOCONAZOLE 2% CREAM 30 GM TUBE TOP SCH ×2 (11:59→21:09)
[2021-05-03] MEDS: PANTOPRAZOLE 40 MG TABLET PO SCH (11:59)
[2021-05-03] MEDS: INSULIN GLARGINE 100 UNIT/ML SUBCUT SCH (11:59)
[2021-05-03] MEDS: OXYBUTYNIN XL 10 MG TABLET PO SCH (11:59)
[2021-05-03] MEDS: SERTRALINE 25 MG TABLET PO SCH (12:00)
[2021-05-03] MEDS: ENOXAPARIN 40 MG/0.4 ML SYRINGE SUBCUT SCH (12:00)
[2021-05-03] MEDS: CHOLESTYRAMINE/ASPARTAME 4 GM PACK PO SCH ×2 (12:00→21:08)
[2021-05-03] MEDS: PIPERACILLIN/TAZOBACTAM 3,375 MG in SODIUM CHLORIDE 0.9% 100 ML IV SCH ×2 (12:05→21:08)
[2021-05-03] MEDS: SODIUM HYPOCHLORITE 0.25% IRRIG 473 ML BOTTLE TOP SCH (14:40)
[2021-05-03] MEDS: metroNIDAZOLE 500 MG TABLET PO SCH (14:42)
[2021-05-03] MEDS: MORPHINE 2 MG/1 ML SYRINGE IV PRN (21:08)
[2021-05-03] MEDS: ZINC OXIDE PASTE 113 GM TUBE TOP PRN (21:09)
[2021-05-04] MEDS: PIPERACILLIN/TAZOBACTAM 3,375 MG in SODIUM CHLORIDE 0.9% 100 ML IV SCH ×3 (04:50→21:32)
[2021-05-04] MEDS: MORPHINE 2 MG/1 ML SYRINGE IV PRN ×2 (05:06→21:29)
[2021-05-04 05:58] LABS: Basophils % 0.2 % (0.0-0.8); Eosinophils # 0.2 10*3/uL (0.0-0.87); Eosinophils % 1.1 % (0.00-10.9); Hematocrit 26.4 VOL% (42.0-52.0); Hemoglobin 7.9 GM/DL (14.0-18.0); Immature Granulocytes % 0.5 %; Immature Granulocytes Absolute 0.09 #; Lymphocytes # 3.1 10*3/uL (1.4-4.0); Lymphocytes % 17.6 % (21.2-54.2); Mean Corpuscular HGB Conc 29.9 GM/DL (32-36); Mean Corpuscular Volume 85.4 FL (87-102); Mean Platelet Volume 9.4 FL (9.6-12.0); Monocytes % 6.9 % (1.7-12.7); Neutrophils % 73.7 % (38.7-73.9); Platelet Count 353 T/CUMM (130-400); Red Blood Count 3.09 MC/CUMM (3.8-5.5); Red Cell Distribution Width 15.5 % (9.3-17.3); White Blood Count 17.5 T/CUMM (4-12)
[2021-05-04 06:25] LABS: Calcium 7.6 MG/DL (8.5-10.1); Osmolality,Calculated 280.3 MOS/KG (273-304); Potassium 3.3 MMOL/L (3.5-5.1)
[2021-05-04] MEDS: SERTRALINE 25 MG TABLET PO SCH (09:23)
[2021-05-04] MEDS: ENOXAPARIN 40 MG/0.4 ML SYRINGE SUBCUT SCH (09:23)
[2021-05-04] MEDS: OXYBUTYNIN XL 10 MG TABLET PO SCH (09:23)
[2021-05-04] MEDS: CHOLESTYRAMINE/ASPARTAME 4 GM PACK PO SCH ×2 (09:23→21:37)
[2021-05-04] MEDS: INSULIN GLARGINE 100 UNIT/ML SUBCUT SCH (09:23)
[2021-05-04] MEDS: PANTOPRAZOLE 40 MG TABLET PO SCH (09:23)
[2021-05-04] MEDS: KETOCONAZOLE 2% CREAM 30 GM TUBE TOP SCH ×2 (09:55→21:38)
[2021-05-04] MEDS: SODIUM HYPOCHLORITE 0.25% IRRIG 473 ML BOTTLE TOP SCH (09:55)
[2021-05-04] MEDS: INSULIN REGULAR 100 UNIT/ML SUBCUT SCH ×4 (09:55→21:31)
[2021-05-04] MEDS ORDERED: POTASSIUM CHLORIDE 20 MEQ TABLET PO ONE (10:30)
[2021-05-05] MEDS: PIPERACILLIN/TAZOBACTAM 3,375 MG in SODIUM CHLORIDE 0.9% 100 ML IV SCH ×3 (03:57→21:46)
[2021-05-05 05:57] LABS: Basophils % 0.2 % (0.0-0.8); Calcium 7.6 MG/DL (8.5-10.1); Eosinophils # 0.2 10*3/uL (0.0-0.87); Eosinophils % 1.1 % (0.00-10.9); Hematocrit 27.1 VOL% (42.0-52.0); Immature Granulocytes % 0.5 %; Immature Granulocytes Absolute 0.09 #; Lymphocytes # 2.6 10*3/uL (1.4-4.0); Lymphocytes % 15.3 % (21.2-54.2); Mean Corpuscular HGB Conc 29.5 GM/DL (32-36); Mean Corpuscular Volume 86.9 FL (87-102); Mean Platelet Volume 9.5 FL (9.6-12.0); Monocytes % 7.1 % (1.7-12.7); Neutrophils % 75.8 % (38.7-73.9); Osmolality,Calculated 280.1 MOS/KG (273-304); Platelet Count 336 T/CUMM (130-400); Potassium 3.7 MMOL/L (3.5-5.1); Red Blood Count 3.12 MC/CUMM (3.8-5.5); Red Cell Distribution Width 15.7 % (9.3-17.3); White Blood Count 17.1 T/CUMM (4-12)
[2021-05-05] MEDS: MORPHINE 2 MG/1 ML SYRINGE IV PRN ×3 (07:12→19:34)
[2021-05-05] MEDS: INSULIN REGULAR 100 UNIT/ML SUBCUT SCH ×4 (07:56→20:15)
[2021-05-05] MEDS: PANTOPRAZOLE 40 MG TABLET PO SCH (08:31)
[2021-05-05] MEDS: OXYBUTYNIN XL 10 MG TABLET PO SCH (08:31)
[2021-05-05] MEDS: SERTRALINE 25 MG TABLET PO SCH (08:31)
[2021-05-05] MEDS: MAGNESIUM SULF RIDER 4 GM/100 ML PREMIX IV PRN (08:31)
[2021-05-05] MEDS: SODIUM HYPOCHLORITE 0.25% IRRIG 473 ML BOTTLE TOP SCH (08:46)
[2021-05-05] MEDS: INSULIN GLARGINE 100 UNIT/ML SUBCUT SCH (08:46)
[2021-05-05] MEDS: KETOCONAZOLE 2% CREAM 30 GM TUBE TOP SCH ×2 (08:46→21:47)
[2021-05-05] MEDS: CHOLESTYRAMINE/ASPARTAME 4 GM PACK PO SCH ×2 (10:19→21:46)
[2021-05-05] MEDS: ENOXAPARIN 40 MG/0.4 ML SYRINGE SUBCUT SCH (10:19)
[2021-05-05] MEDS: VANCOMYCIN INJ 1,000 MG in SODIUM CHLORIDE 0.9% 250 ML IV SCH (12:07)
[2021-05-06] MEDS: VANCOMYCIN INJ 1,000 MG in SODIUM CHLORIDE 0.9% 250 ML IV SCH (01:50)
[2021-05-06] MEDS: PIPERACILLIN/TAZOBACTAM 3,375 MG in SODIUM CHLORIDE 0.9% 100 ML IV SCH (04:42)
[2021-05-06] MEDS: MORPHINE 2 MG/1 ML SYRINGE IV PRN ×3 (04:42→19:50)
[2021-05-06 08:29] LABS: Basophils % 0.2 % (0.0-0.8); Eosinophils # 0.1 10*3/uL (0.0-0.87); Eosinophils % 0.6 % (0.00-10.9); Hematocrit 26.3 VOL% (42.0-52.0); Hemoglobin 7.8 GM/DL (14.0-18.0); Immature Granulocytes % 0.6 %; Lymphocytes # 2.7 10*3/uL (1.4-4.0); Lymphocytes % 16.2 % (21.2-54.2); Mean Corpuscular HGB Conc 29.7 GM/DL (32-36); Mean Corpuscular Volume 87.1 FL (87-102); Mean Platelet Volume 8.9 FL (9.6-12.0); Neutrophils % 76.4 % (38.7-73.9); Platelet Count 302 T/CUMM (130-400); Red Blood Count 3.02 MC/CUMM (3.8-5.5); Red Cell Distribution Width 15.9 % (9.3-17.3)
[2021-05-06] MEDS: SERTRALINE 25 MG TABLET PO SCH (08:44)
[2021-05-06] MEDS: OXYBUTYNIN XL 10 MG TABLET PO SCH (08:44)
[2021-05-06] MEDS: PANTOPRAZOLE 40 MG TABLET PO SCH (08:44)
[2021-05-06 08:51] LABS: Calcium 7.4 MG/DL (8.5-10.1); Osmolality,Calculated 286.7 MOS/KG (273-304); Potassium 3.9 MMOL/L (3.5-5.1)
[2021-05-06] MEDS ORDERED: DEXTROSE 10% 250 ML BAG IV PRN (09:00)
[2021-05-06] MEDS: INSULIN REGULAR 100 UNIT/ML SUBCUT SCH ×4 (10:06→21:47)
[2021-05-06] MEDS: SODIUM HYPOCHLORITE 0.25% IRRIG 473 ML BOTTLE TOP SCH (10:07)
[2021-05-06] MEDS: INSULIN GLARGINE 100 UNIT/ML SUBCUT SCH (10:08)
[2021-05-06] MEDS: KETOCONAZOLE 2% CREAM 30 GM TUBE TOP SCH ×2 (10:08→21:35)
[2021-05-06] MEDS: CHOLESTYRAMINE/ASPARTAME 4 GM PACK PO SCH ×2 (11:35→21:33)
[2021-05-06] MEDS: ENOXAPARIN 40 MG/0.4 ML SYRINGE SUBCUT SCH (11:35)
[2021-05-06] MEDS: cefTRIAXone 2,000 MG in SODIUM CHLORIDE 0.9% 100 ML IV SCH (16:24)
[2021-05-06] MEDS: ZINC OXIDE PASTE 113 GM TUBE TOP PRN (21:34)
[2021-05-07] MEDS: MORPHINE 2 MG/1 ML SYRINGE IV PRN ×4 (01:12→22:04)
[2021-05-07 06:11] LABS: Basophils % 0.2 % (0.0-0.8); Eosinophils # 0.1 10*3/uL (0.0-0.87); Eosinophils % 0.6 % (0.00-10.9); Hemoglobin 7.5 GM/DL (14.0-18.0); Immature Granulocytes % 0.5 %; Immature Granulocytes Absolute 0.08 #; Lymphocytes # 2.8 10*3/uL (1.4-4.0); Lymphocytes % 15.7 % (21.2-54.2); Mean Corpuscular Volume 86.8 FL (87-102); Monocytes % 6.1 % (1.7-12.7); Neutrophils % 76.9 % (38.7-73.9); Platelet Count 275 T/CUMM (130-400); Red Blood Count 2.88 MC/CUMM (3.8-5.5); Red Cell Distribution Width 15.7 % (9.3-17.3); White Blood Count 17.7 T/CUMM (4-12)
[2021-05-07 06:30] LABS: Calcium 8.1 MG/DL (8.5-10.1); Potassium 3.7 MMOL/L (3.5-5.1)
[2021-05-07] MEDS: INSULIN REGULAR 100 UNIT/ML SUBCUT SCH ×4 (08:13→21:48)
[2021-05-07] MEDS: cefTRIAXone 2,000 MG in SODIUM CHLORIDE 0.9% 100 ML IV SCH (08:55)
[2021-05-07] MEDS: OXYBUTYNIN XL 10 MG TABLET PO SCH (08:55)
[2021-05-07] MEDS: CHOLESTYRAMINE/ASPARTAME 4 GM PACK PO SCH ×3 (08:55→21:50)
[2021-05-07] MEDS: SERTRALINE 25 MG TABLET PO SCH (08:55)
[2021-05-07] MEDS: PANTOPRAZOLE 40 MG TABLET PO SCH (08:55)
[2021-05-07] MEDS: ENOXAPARIN 40 MG/0.4 ML SYRINGE SUBCUT SCH ×2 (08:56→09:26)
[2021-05-07] MEDS: KETOCONAZOLE 2% CREAM 30 GM TUBE TOP SCH ×2 (08:57→21:50)
[2021-05-07] MEDS: INSULIN GLARGINE 100 UNIT/ML SUBCUT SCH (08:57)
[2021-05-07] MEDS: SODIUM HYPOCHLORITE 0.25% IRRIG 473 ML BOTTLE TOP SCH (08:57)
[2021-05-07] MEDS: MAGNESIUM SULF RIDER 4 GM/100 ML PREMIX IV PRN (10:03)
[2021-05-08] MEDS: SIMETHICONE CHEW 125 MG TABLET PO PRN ×3 (00:23→23:34)
[2021-05-08] MEDS: MORPHINE 2 MG/1 ML SYRINGE IV PRN ×3 (05:52→23:29)
[2021-05-08 06:36] LABS: Basophils % 0.1 % (0.0-0.8); Eosinophils # 0.1 10*3/uL (0.0-0.87); Eosinophils % 0.7 % (0.00-10.9); Hematocrit 24.2 VOL% (42.0-52.0); Hemoglobin 7.3 GM/DL (14.0-18.0); Immature Granulocytes % 0.6 %; Lymphocytes % 11.7 % (21.2-54.2); Mean Corpuscular HGB Conc 30.2 GM/DL (32-36); Mean Corpuscular Volume 85.8 FL (87-102); Mean Platelet Volume 9.1 FL (9.6-12.0); Monocytes % 5.5 % (1.7-12.7); Neutrophils % 81.4 % (38.7-73.9); Platelet Count 253 T/CUMM (130-400); Red Blood Count 2.82 MC/CUMM (3.8-5.5); Red Cell Distribution Width 15.6 % (9.3-17.3); White Blood Count 16.8 T/CUMM (4-12)
[2021-05-08 06:45] LABS: Calcium 8.2 MG/DL (8.5-10.1); Osmolality,Calculated 281.4 MOS/KG (273-304); Potassium 3.8 MMOL/L (3.5-5.1)
[2021-05-08] MEDS: OXYBUTYNIN XL 10 MG TABLET PO SCH (09:27)
[2021-05-08] MEDS: PANTOPRAZOLE 40 MG TABLET PO SCH (09:27)
[2021-05-08] MEDS: SERTRALINE 25 MG TABLET PO SCH (09:27)
[2021-05-08] MEDS: ERGOCALCIFEROL 50,000 UNIT CAPSULE PO SCH (09:27)
[2021-05-08] MEDS: INSULIN GLARGINE 100 UNIT/ML SUBCUT SCH (09:27)
[2021-05-08] MEDS: INSULIN REGULAR 100 UNIT/ML SUBCUT SCH ×4 (09:27→22:29)
[2021-05-08] MEDS: ENOXAPARIN 40 MG/0.4 ML SYRINGE SUBCUT SCH (09:28)
[2021-05-08] MEDS: CHOLESTYRAMINE/ASPARTAME 4 GM PACK PO SCH ×2 (09:28→22:47)
[2021-05-08] MEDS: KETOCONAZOLE 2% CREAM 30 GM TUBE TOP SCH ×2 (09:28→22:49)
[2021-05-08] MEDS: SODIUM HYPOCHLORITE 0.25% IRRIG 473 ML BOTTLE TOP SCH (09:28)
[2021-05-08] MEDS: cefTRIAXone 2,000 MG in SODIUM CHLORIDE 0.9% 100 ML IV SCH (09:28)
[2021-05-08] MEDS ORDERED: DOCUSATE SODIUM 100 MG CAPSULE PO PRN (10:52)
[2021-05-08] MEDS: MELATONIN 3 MG TABLET PO SCH (22:47)
[2021-05-08] MEDS: DOCUSATE SODIUM 100 MG CAPSULE PO SCH (22:48)
[2021-05-09] MEDS: SIMETHICONE CHEW 125 MG TABLET PO PRN (05:18)
[2021-05-09 07:11] LABS: Basophils % 0.1 % (0.0-0.8); Eosinophils # 0.1 10*3/uL (0.0-0.87); Hematocrit 24.7 VOL% (42.0-52.0); Hemoglobin 7.4 GM/DL (14.0-18.0); Immature Granulocytes % 0.6 %; Immature Granulocytes Absolute 0.08 #; Lymphocytes # 1.7 10*3/uL (1.4-4.0); Lymphocytes % 12.7 % (21.2-54.2); Mean Corpuscular Volume 86.4 FL (87-102); Mean Platelet Volume 9.2 FL (9.6-12.0); Monocytes % 7.1 % (1.7-12.7); Neutrophils % 78.5 % (38.7-73.9); Platelet Count 268 T/CUMM (130-400); Red Blood Count 2.86 MC/CUMM (3.8-5.5); Red Cell Distribution Width 15.4 % (9.3-17.3); White Blood Count 13.6 T/CUMM (4-12)
[2021-05-09] MEDS: ENOXAPARIN 40 MG/0.4 ML SYRINGE SUBCUT SCH (09:03)
[2021-05-09] MEDS: DOCUSATE SODIUM 100 MG CAPSULE PO SCH ×2 (09:03→22:37)
[2021-05-09] MEDS: PANTOPRAZOLE 40 MG TABLET PO SCH (09:03)
[2021-05-09] MEDS: OXYBUTYNIN XL 10 MG TABLET PO SCH (09:03)
[2021-05-09] MEDS: SERTRALINE 25 MG TABLET PO SCH (09:04)
[2021-05-09] MEDS: INSULIN REGULAR 100 UNIT/ML SUBCUT SCH ×4 (09:04→22:37)
[2021-05-09] MEDS: INSULIN GLARGINE 100 UNIT/ML SUBCUT SCH (09:04)
[2021-05-09] MEDS: cefTRIAXone 2,000 MG in SODIUM CHLORIDE 0.9% 100 ML IV SCH (09:04)
[2021-05-09] MEDS: CHOLESTYRAMINE/ASPARTAME 4 GM PACK PO SCH ×2 (09:04→22:37)
[2021-05-09] MEDS: SODIUM HYPOCHLORITE 0.25% IRRIG 473 ML BOTTLE TOP SCH (09:05)
[2021-05-09] MEDS: KETOCONAZOLE 2% CREAM 30 GM TUBE TOP SCH ×2 (09:05→22:37)
[2021-05-09] MEDS: MORPHINE 2 MG/1 ML SYRINGE IV PRN ×3 (10:32→22:43)
[2021-05-09] MEDS ORDERED: LACTULOSE 20 GM/30 ML UDCUP PO PRN (14:22)
[2021-05-09] MEDS: MELATONIN 3 MG TABLET PO SCH (22:37)
[2021-05-09] MEDS: ACETAMINOPHEN 325 MG TABLET PO PRN (23:47)
[2021-05-10] MEDS: MORPHINE 2 MG/1 ML SYRINGE IV PRN ×3 (05:14→23:56)
[2021-05-10] MEDS: OXYBUTYNIN XL 10 MG TABLET PO SCH (08:39)
[2021-05-10] MEDS: PANTOPRAZOLE 40 MG TABLET PO SCH (08:39)
[2021-05-10] MEDS: cefTRIAXone 2,000 MG in SODIUM CHLORIDE 0.9% 100 ML IV SCH (08:40)
[2021-05-10] MEDS: INSULIN REGULAR 100 UNIT/ML SUBCUT SCH ×4 (08:40→22:21)
[2021-05-10] MEDS: SERTRALINE 25 MG TABLET PO SCH (08:40)
[2021-05-10] MEDS: SODIUM HYPOCHLORITE 0.25% IRRIG 473 ML BOTTLE TOP SCH (08:44)
[2021-05-10] MEDS: KETOCONAZOLE 2% CREAM 30 GM TUBE TOP SCH ×2 (08:44→21:02)
[2021-05-10] MEDS: DOCUSATE SODIUM 100 MG CAPSULE PO SCH ×2 (08:44→20:18)
[2021-05-10] MEDS: INSULIN GLARGINE 100 UNIT/ML SUBCUT SCH (08:44)
[2021-05-10] MEDS: CHOLESTYRAMINE/ASPARTAME 4 GM PACK PO SCH ×2 (12:41→21:02)
[2021-05-10] MEDS: ENOXAPARIN 40 MG/0.4 ML SYRINGE SUBCUT SCH (12:41)
[2021-05-10] MEDS: MELATONIN 3 MG TABLET PO SCH (20:18)
[2021-05-10] MEDS: ACETAMINOPHEN 325 MG TABLET PO PRN (20:18)
[2021-05-11 06:12] LABS: Basophils % 0.1 % (0.0-0.8); Eosinophils # 0.1 10*3/uL (0.0-0.87); Eosinophils % 1.2 % (0.00-10.9); Hematocrit 23.5 VOL% (42.0-52.0); Immature Granulocytes % 0.6 %; Immature Granulocytes Absolute 0.07 #; Lymphocytes # 2.4 10*3/uL (1.4-4.0); Lymphocytes % 21.4 % (21.2-54.2); Mean Corpuscular HGB Conc 29.8 GM/DL (32-36); Mean Corpuscular Volume 86.7 FL (87-102); Mean Platelet Volume 9.2 FL (9.6-12.0); Monocytes % 8.3 % (1.7-12.7); Neutrophils % 68.4 % (38.7-73.9); Platelet Count 224 T/CUMM (130-400); Red Blood Count 2.71 MC/CUMM (3.8-5.5); Red Cell Distribution Width 15.4 % (9.3-17.3); White Blood Count 11.3 T/CUMM (4-12)
[2021-05-11 06:32] LABS: Calcium 8.2 MG/DL (8.5-10.1); Osmolality,Calculated 280.3 MOS/KG (273-304); Potassium 3.9 MMOL/L (3.5-5.1)
[2021-05-11] MEDS: INSULIN REGULAR 100 UNIT/ML SUBCUT SCH ×4 (09:47→22:01)
[2021-05-11] MEDS: OXYBUTYNIN XL 10 MG TABLET PO SCH (09:59)
[2021-05-11] MEDS: SERTRALINE 25 MG TABLET PO SCH (10:00)
[2021-05-11] MEDS: DOCUSATE SODIUM 100 MG CAPSULE PO SCH ×2 (10:00→22:06)
[2021-05-11] MEDS: PANTOPRAZOLE 40 MG TABLET PO SCH (10:00)
[2021-05-11] MEDS: cefTRIAXone 2,000 MG in SODIUM CHLORIDE 0.9% 100 ML IV SCH (10:03)
[2021-05-11] MEDS: MORPHINE 2 MG/1 ML SYRINGE IV PRN ×2 (10:04→17:00)
[2021-05-11] MEDS: CHOLESTYRAMINE/ASPARTAME 4 GM PACK PO SCH ×2 (10:08→22:06)
[2021-05-11] MEDS: SODIUM HYPOCHLORITE 0.25% IRRIG 473 ML BOTTLE TOP SCH (10:08)
[2021-05-11] MEDS: KETOCONAZOLE 2% CREAM 30 GM TUBE TOP SCH ×2 (10:08→22:06)
[2021-05-11 13:29] LABS: Hematocrit 24.3 VOL% (42.0-52.0); Hemoglobin 7.3 GM/DL (14.0-18.0)
[2021-05-11] MEDS: MELATONIN 3 MG TABLET PO SCH (22:06)
[2021-05-12] MEDS ORDERED: MORPHINE 2 MG/1 ML SYRINGE IV PRN (03:23)
[2021-05-12 07:46] LABS: Basophils % 0.1 % (0.0-0.8); Eosinophils # 0.1 10*3/uL (0.0-0.87); Eosinophils % 0.9 % (0.00-10.9); Hematocrit 23.8 VOL% (42.0-52.0); Hemoglobin 7.1 GM/DL (14.0-18.0); Immature Granulocytes % 0.5 %; Immature Granulocytes Absolute 0.06 #; Lymphocytes # 1.7 10*3/uL (1.4-4.0); Lymphocytes % 15.2 % (21.2-54.2); Mean Corpuscular HGB Conc 29.8 GM/DL (32-36); Mean Corpuscular Volume 86.9 FL (87-102); Mean Platelet Volume 9.5 FL (9.6-12.0); Monocytes % 6.6 % (1.7-12.7); Neutrophils % 76.7 % (38.7-73.9); Platelet Count 241 T/CUMM (130-400); Red Blood Count 2.74 MC/CUMM (3.8-5.5); Red Cell Distribution Width 15.1 % (9.3-17.3); White Blood Count 11.5 T/CUMM (4-12)
[2021-05-12] MEDS: cefTRIAXone 2,000 MG in SODIUM CHLORIDE 0.9% 100 ML IV SCH (09:05)
[2021-05-12] MEDS: DOCUSATE SODIUM 100 MG CAPSULE PO SCH (09:06)
[2021-05-12] MEDS: CHOLESTYRAMINE/ASPARTAME 4 GM PACK PO SCH ×2 (09:07→21:45)
[2021-05-12] MEDS: PANTOPRAZOLE 40 MG TABLET PO SCH (09:07)
[2021-05-12] MEDS: SERTRALINE 25 MG TABLET PO SCH (09:07)
[2021-05-12] MEDS: OXYBUTYNIN XL 10 MG TABLET PO SCH (09:07)
[2021-05-12] MEDS: INSULIN REGULAR 100 UNIT/ML SUBCUT SCH ×4 (10:58→21:37)
[2021-05-12] MEDS: SODIUM HYPOCHLORITE 0.25% IRRIG 473 ML BOTTLE TOP SCH (13:19)
[2021-05-12] MEDS: KETOCONAZOLE 2% CREAM 30 GM TUBE TOP SCH ×2 (13:20→21:54)
[2021-05-12] MEDS: SIMETHICONE CHEW 125 MG TABLET PO PRN (14:58)
[2021-05-12] MEDS: MORPHINE 2 MG/1 ML SYRINGE IV PRN ×2 (14:58→22:18)
[2021-05-12] MEDS: NICOTINE 14 MG/24 HR PATCH TRANSDERM PRN (15:00)
[2021-05-12] MEDS: MELATONIN 3 MG TABLET PO SCH (21:45)
[2021-05-13] MEDS: SIMETHICONE CHEW 125 MG TABLET PO PRN ×2 (04:23→13:28)
[2021-05-13 07:11] LABS: Basophils % 0.2 % (0.0-0.8); Eosinophils # 0.1 10*3/uL (0.0-0.87); Eosinophils % 1.2 % (0.00-10.9); Hematocrit 27.6 VOL% (42.0-52.0); Immature Granulocytes % 0.3 %; Immature Granulocytes Absolute 0.03 #; Lymphocytes # 1.9 10*3/uL (1.4-4.0); Lymphocytes % 18.2 % (21.2-54.2); Mean Corpuscular Volume 89.6 FL (87-102); Mean Platelet Volume 9.9 FL (9.6-12.0); Monocytes % 7.6 % (1.7-12.7); Neutrophils % 72.5 % (38.7-73.9); Platelet Count 232 T/CUMM (130-400); Red Blood Count 3.08 MC/CUMM (3.8-5.5); White Blood Count 10.6 T/CUMM (4-12)
[2021-05-13] MEDS: INSULIN REGULAR 100 UNIT/ML SUBCUT SCH ×4 (08:09→21:06)
[2021-05-13] MEDS: CHOLESTYRAMINE/ASPARTAME 4 GM PACK PO SCH ×2 (09:33→21:50)
[2021-05-13] MEDS: PANTOPRAZOLE 40 MG TABLET PO SCH (09:34)
[2021-05-13] MEDS: SODIUM HYPOCHLORITE 0.25% IRRIG 473 ML BOTTLE TOP SCH (09:34)
[2021-05-13] MEDS: OXYBUTYNIN XL 10 MG TABLET PO SCH (09:34)
[2021-05-13] MEDS: SERTRALINE 25 MG TABLET PO SCH (09:34)
[2021-05-13] MEDS: KETOCONAZOLE 2% CREAM 30 GM TUBE TOP SCH ×2 (09:36→21:49)
[2021-05-13] MEDS: cefTRIAXone 2,000 MG in SODIUM CHLORIDE 0.9% 100 ML IV SCH (09:36)
[2021-05-13] MEDS: MELATONIN 3 MG TABLET PO SCH (21:08)
[2021-05-14] MEDS: OXYBUTYNIN XL 10 MG TABLET PO SCH (08:05)
[2021-05-14] MEDS: PANTOPRAZOLE 40 MG TABLET PO SCH (08:06)
[2021-05-14] MEDS: cefTRIAXone 2,000 MG in SODIUM CHLORIDE 0.9% 100 ML IV SCH (08:06)
[2021-05-14] MEDS: SERTRALINE 25 MG TABLET PO SCH (08:06)
[2021-05-14] MEDS: INSULIN REGULAR 100 UNIT/ML SUBCUT SCH ×4 (08:48→20:52)
[2021-05-14] MEDS: SODIUM HYPOCHLORITE 0.25% IRRIG 473 ML BOTTLE TOP SCH (08:49)
[2021-05-14] MEDS: KETOCONAZOLE 2% CREAM 30 GM TUBE TOP SCH ×2 (08:51→20:53)
[2021-05-14] MEDS: CHOLESTYRAMINE/ASPARTAME 4 GM PACK PO SCH ×3 (11:38→22:14)
[2021-05-14] MEDS: MELATONIN 3 MG TABLET PO SCH (20:53)
[2021-05-15] MEDS: INSULIN REGULAR 100 UNIT/ML SUBCUT SCH ×4 (08:03→21:51)
[2021-05-15] MEDS: SERTRALINE 25 MG TABLET PO SCH (10:02)
[2021-05-15] MEDS: PANTOPRAZOLE 40 MG TABLET PO SCH (10:02)
[2021-05-15] MEDS: cefTRIAXone 2,000 MG in SODIUM CHLORIDE 0.9% 100 ML IV SCH (10:02)
[2021-05-15] MEDS: OXYBUTYNIN XL 10 MG TABLET PO SCH (10:02)
[2021-05-15] MEDS: LOPERAMIDE 2 MG CAPSULE PO PRN (12:44)
[2021-05-15] MEDS: NICOTINE 14 MG/24 HR PATCH TRANSDERM PRN (12:49)
[2021-05-15] MEDS: ERGOCALCIFEROL 50,000 UNIT CAPSULE PO SCH (12:50)
[2021-05-15] MEDS: CHOLESTYRAMINE/ASPARTAME 4 GM PACK PO SCH ×2 (13:55→22:00)
[2021-05-15] MEDS: SODIUM HYPOCHLORITE 0.25% IRRIG 473 ML BOTTLE TOP SCH (15:34)
[2021-05-15] MEDS: KETOCONAZOLE 2% CREAM 30 GM TUBE TOP SCH ×2 (15:34→22:00)
[2021-05-15] MEDS: MELATONIN 3 MG TABLET PO SCH (21:51)
[2021-05-16 05:02] LABS: Basophils % 0.1 % (0.0-0.8); Eosinophils # 0.2 10*3/uL (0.0-0.87); Eosinophils % 1.9 % (0.00-10.9); Hemoglobin 7.6 GM/DL (14.0-18.0); Immature Granulocytes % 0.3 %; Immature Granulocytes Absolute 0.03 #; Lymphocytes # 2.4 10*3/uL (1.4-4.0); Lymphocytes % 23.2 % (21.2-54.2); Mean Corpuscular HGB Conc 29.2 GM/DL (32-36); Mean Corpuscular Volume 87.5 FL (87-102); Mean Platelet Volume 9.2 FL (9.6-12.0); Monocytes % 9.6 % (1.7-12.7); Neutrophils % 64.9 % (38.7-73.9); Platelet Count 348 T/CUMM (130-400); Red Blood Count 2.97 MC/CUMM (3.8-5.5); White Blood Count 10.3 T/CUMM (4-12)
[2021-05-16 05:38] LABS: Calcium 8.2 MG/DL (8.5-10.1)
[2021-05-16] MEDS: LOPERAMIDE 2 MG CAPSULE PO PRN (05:43)
[2021-05-16] MEDS: INSULIN REGULAR 100 UNIT/ML SUBCUT SCH ×4 (08:25→21:44)
[2021-05-16] MEDS: SODIUM HYPOCHLORITE 0.25% IRRIG 473 ML BOTTLE TOP SCH (09:14)
[2021-05-16] MEDS: cefTRIAXone 2,000 MG in SODIUM CHLORIDE 0.9% 100 ML IV SCH (09:14)
[2021-05-16] MEDS: KETOCONAZOLE 2% CREAM 30 GM TUBE TOP SCH ×2 (09:15→21:37)
[2021-05-16] MEDS: PANTOPRAZOLE 40 MG TABLET PO SCH (09:15)
[2021-05-16] MEDS: CHOLESTYRAMINE/ASPARTAME 4 GM PACK PO SCH ×2 (09:15→21:36)
[2021-05-16] MEDS: SERTRALINE 25 MG TABLET PO SCH (09:15)
[2021-05-16] MEDS: OXYBUTYNIN XL 10 MG TABLET PO SCH (09:15)
[2021-05-16] MEDS: MELATONIN 3 MG TABLET PO SCH (21:36)
[2021-05-17 05:22] LABS: Basophils % 0.1 % (0.0-0.8); Eosinophils # 0.2 10*3/uL (0.0-0.87); Eosinophils % 1.7 % (0.00-10.9); Hematocrit 23.9 VOL% (42.0-52.0); Hemoglobin 6.9 GM/DL (14.0-18.0); Immature Granulocytes % 0.6 %; Immature Granulocytes Absolute 0.05 #; Lymphocytes # 1.7 10*3/uL (1.4-4.0); Lymphocytes % 19.5 % (21.2-54.2); Mean Corpuscular HGB Conc 28.9 GM/DL (32-36); Mean Corpuscular Volume 87.9 FL (87-102); Mean Platelet Volume 9.1 FL (9.6-12.0); Neutrophils % 68.1 % (38.7-73.9); Platelet Count 336 T/CUMM (130-400); Red Blood Count 2.72 MC/CUMM (3.8-5.5); Red Cell Distribution Width 15.1 % (9.3-17.3); White Blood Count 8.7 T/CUMM (4-12)
[2021-05-17 05:54] LABS: Calcium 8.3 MG/DL (8.5-10.1)
[2021-05-17] MEDS ORDERED: SODIUM CHLORIDE 0.9% 1,000 ML IV PRN (06:07)
[2021-05-17] MEDS: OXYBUTYNIN XL 10 MG TABLET PO SCH (08:54)
[2021-05-17] MEDS: SERTRALINE 25 MG TABLET PO SCH (08:54)
[2021-05-17] MEDS: PANTOPRAZOLE 40 MG TABLET PO SCH (08:54)
[2021-05-17] MEDS: LOPERAMIDE 2 MG CAPSULE PO PRN ×2 (09:00→23:59)
[2021-05-17] MEDS: CHOLESTYRAMINE/ASPARTAME 4 GM PACK PO SCH ×2 (09:00→22:28)
[2021-05-17] MEDS: cefTRIAXone 2,000 MG in SODIUM CHLORIDE 0.9% 100 ML IV SCH (09:03)
[2021-05-17] MEDS: KETOCONAZOLE 2% CREAM 30 GM TUBE TOP SCH ×2 (09:05→22:28)
[2021-05-17] MEDS: SODIUM HYPOCHLORITE 0.25% IRRIG 473 ML BOTTLE TOP SCH (09:05)
[2021-05-17] MEDS: INSULIN REGULAR 100 UNIT/ML SUBCUT SCH ×4 (10:38→22:28)
[2021-05-17 15:11] LABS: Hemoglobin 8.5 GM/DL (14.0-18.0)
[2021-05-17] MEDS: traMADol 50 MG TABLET PO PRN (22:27)
[2021-05-17] MEDS: MELATONIN 3 MG TABLET PO SCH (22:28)
[2021-05-17] MEDS: ACETAMINOPHEN 325 MG TABLET PO PRN (23:59)
[2021-05-18 05:06] LABS: Basophils % 0.1 % (0.0-0.8); Eosinophils # 0.2 10*3/uL (0.0-0.87); Eosinophils % 2.4 % (0.00-10.9); Hematocrit 27.8 VOL% (42.0-52.0); Hemoglobin 8.4 GM/DL (14.0-18.0); Immature Granulocytes % 0.4 %; Immature Granulocytes Absolute 0.03 #; Lymphocytes # 2.1 10*3/uL (1.4-4.0); Lymphocytes % 24.6 % (21.2-54.2); Mean Corpuscular HGB Conc 30.2 GM/DL (32-36); Mean Platelet Volume 8.8 FL (9.6-12.0); Monocytes % 11.6 % (1.7-12.7); Neutrophils % 60.9 % (38.7-73.9); Platelet Count 345 T/CUMM (130-400); Red Blood Count 3.16 MC/CUMM (3.8-5.5); Red Cell Distribution Width 14.9 % (9.3-17.3); White Blood Count 8.4 T/CUMM (4-12)
[2021-05-18 05:35] LABS: Calcium 8.8 MG/DL (8.5-10.1); Osmolality,Calculated 283.1 MOS/KG (273-304); Potassium 3.8 MMOL/L (3.5-5.1)
[2021-05-18] MEDS: PANTOPRAZOLE 40 MG TABLET PO SCH (09:20)
[2021-05-18] MEDS: SERTRALINE 25 MG TABLET PO SCH (09:20)
[2021-05-18] MEDS: CHOLESTYRAMINE/ASPARTAME 4 GM PACK PO SCH ×2 (09:20→21:16)
[2021-05-18] MEDS: cefTRIAXone 2,000 MG in SODIUM CHLORIDE 0.9% 100 ML IV SCH (09:20)
[2021-05-18] MEDS: OXYBUTYNIN XL 10 MG TABLET PO SCH (09:20)
[2021-05-18] MEDS: MAGNESIUM SULF RIDER 2 GM/50 ML PREMIX IV PRN ×2 (10:21→13:06)
[2021-05-18] MEDS: INSULIN REGULAR 100 UNIT/ML SUBCUT SCH ×3 (12:43→21:18)
[2021-05-18] MEDS: KETOCONAZOLE 2% CREAM 30 GM TUBE TOP SCH ×2 (17:18→21:18)
[2021-05-18] MEDS: SODIUM HYPOCHLORITE 0.25% IRRIG 473 ML BOTTLE TOP SCH (19:24)
[2021-05-18] MEDS: MELATONIN 3 MG TABLET PO SCH (21:16)
[2021-05-18] MEDS: LOPERAMIDE 2 MG CAPSULE PO PRN (21:30)
[2021-05-19] MEDS: cefTRIAXone 2,000 MG in SODIUM CHLORIDE 0.9% 100 ML IV SCH (08:41)
[2021-05-19] MEDS: SERTRALINE 25 MG TABLET PO SCH (08:42)
[2021-05-19] MEDS: OXYBUTYNIN XL 10 MG TABLET PO SCH (08:42)
[2021-05-19] MEDS: traMADol 50 MG TABLET PO PRN (08:42)
[2021-05-19] MEDS: CHOLESTYRAMINE/ASPARTAME 4 GM PACK PO SCH ×3 (08:42→21:33)
[2021-05-19] MEDS: PANTOPRAZOLE 40 MG TABLET PO SCH (08:42)
[2021-05-19] MEDS: NICOTINE 14 MG/24 HR PATCH TRANSDERM PRN (08:45)
[2021-05-19] MEDS: SODIUM HYPOCHLORITE 0.25% IRRIG 473 ML BOTTLE TOP SCH (09:51)
[2021-05-19] MEDS: INSULIN REGULAR 100 UNIT/ML SUBCUT SCH ×4 (09:51→22:22)
[2021-05-19] MEDS: KETOCONAZOLE 2% CREAM 30 GM TUBE TOP SCH ×2 (11:58→21:33)
[2021-05-19] MEDS: ENOXAPARIN 40 MG/0.4 ML SYRINGE SUBCUT SCH (12:31)
[2021-05-19] MEDS: oxyCODONE/ACETAMINOPHEN 5-325 MG TABLET PO PRN (16:56)
[2021-05-19] MEDS: MELATONIN 3 MG TABLET PO SCH (21:32)
[2021-05-19] MEDS: LOPERAMIDE 2 MG CAPSULE PO PRN (21:33)
[2021-05-20] MEDS: oxyCODONE/ACETAMINOPHEN 5-325 MG TABLET PO PRN ×2 (01:27→18:45)
[2021-05-20] MEDS: PANTOPRAZOLE 40 MG TABLET PO SCH (08:43)
[2021-05-20] MEDS: OXYBUTYNIN XL 10 MG TABLET PO SCH (08:43)
[2021-05-20] MEDS: SERTRALINE 25 MG TABLET PO SCH (08:43)
[2021-05-20] MEDS: ENOXAPARIN 40 MG/0.4 ML SYRINGE SUBCUT SCH ×2 (08:43→12:59)
[2021-05-20] MEDS: INSULIN REGULAR 100 UNIT/ML SUBCUT SCH ×3 (08:43→16:35)
[2021-05-20] MEDS: SODIUM HYPOCHLORITE 0.25% IRRIG 473 ML BOTTLE TOP SCH (08:44)
[2021-05-20] MEDS: CHOLESTYRAMINE/ASPARTAME 4 GM PACK PO SCH ×3 (08:44→21:40)
[2021-05-20] MEDS: KETOCONAZOLE 2% CREAM 30 GM TUBE TOP SCH ×2 (08:44→21:40)
[2021-05-20] MEDS: cefTRIAXone 2,000 MG in SODIUM CHLORIDE 0.9% 100 ML IV SCH (16:11)
[2021-05-20] MEDS: LOPERAMIDE 2 MG CAPSULE PO PRN ×2 (16:12→21:40)
[2021-05-20] MEDS: MELATONIN 3 MG TABLET PO SCH (21:40)
[2021-05-21] MEDS: INSULIN REGULAR 100 UNIT/ML SUBCUT SCH ×5 (01:30→21:18)
[2021-05-21] MEDS: oxyCODONE/ACETAMINOPHEN 5-325 MG TABLET PO PRN ×3 (01:35→19:26)
[2021-05-21] MEDS: SERTRALINE 25 MG TABLET PO SCH (08:23)
[2021-05-21] MEDS: PANTOPRAZOLE 40 MG TABLET PO SCH (08:23)
[2021-05-21] MEDS: OXYBUTYNIN XL 10 MG TABLET PO SCH (08:23)
[2021-05-21] MEDS: cefTRIAXone 2,000 MG in SODIUM CHLORIDE 0.9% 100 ML IV SCH (08:23)
[2021-05-21] MEDS: KETOCONAZOLE 2% CREAM 30 GM TUBE TOP SCH ×2 (08:24→21:19)
[2021-05-21] MEDS: SODIUM HYPOCHLORITE 0.25% IRRIG 473 ML BOTTLE TOP SCH (08:24)
[2021-05-21] MEDS: ENOXAPARIN 40 MG/0.4 ML SYRINGE SUBCUT SCH (10:15)
[2021-05-21] MEDS: CHOLESTYRAMINE/ASPARTAME 4 GM PACK PO SCH ×2 (10:16→21:20)
[2021-05-21] MEDS: NICOTINE 14 MG/24 HR PATCH TRANSDERM PRN (19:26)
[2021-05-21] MEDS: MELATONIN 3 MG TABLET PO SCH (21:15)
[2021-05-22] MEDS: INSULIN REGULAR 100 UNIT/ML SUBCUT SCH ×4 (09:15→22:24)
[2021-05-22] MEDS: OXYBUTYNIN XL 10 MG TABLET PO SCH (09:58)
[2021-05-22] MEDS: SODIUM HYPOCHLORITE 0.25% IRRIG 473 ML BOTTLE TOP SCH (09:58)
[2021-05-22] MEDS: cefTRIAXone 2,000 MG in SODIUM CHLORIDE 0.9% 100 ML IV SCH (09:59)
[2021-05-22] MEDS: ENOXAPARIN 40 MG/0.4 ML SYRINGE SUBCUT SCH (09:59)
[2021-05-22] MEDS: CHOLESTYRAMINE/ASPARTAME 4 GM PACK PO SCH ×2 (09:59→22:48)
[2021-05-22] MEDS: KETOCONAZOLE 2% CREAM 30 GM TUBE TOP SCH ×2 (09:59→22:28)
[2021-05-22] MEDS: SERTRALINE 25 MG TABLET PO SCH (09:59)
[2021-05-22] MEDS: PANTOPRAZOLE 40 MG TABLET PO SCH (09:59)
[2021-05-22] MEDS: ERGOCALCIFEROL 50,000 UNIT CAPSULE PO SCH (09:59)
[2021-05-22] MEDS: oxyCODONE/ACETAMINOPHEN 5-325 MG TABLET PO PRN ×2 (10:14→22:48)
[2021-05-22] MEDS: MELATONIN 3 MG TABLET PO SCH (22:48)
[2021-05-23 06:19] LABS: Basophils % 0.3 % (0.0-0.8); Eosinophils # 0.2 10*3/uL (0.0-0.87); Eosinophils % 1.3 % (0.00-10.9); Hematocrit 27.5 VOL% (42.0-52.0); Hemoglobin 8.3 GM/DL (14.0-18.0); Immature Granulocytes % 0.5 %; Immature Granulocytes Absolute 0.07 #; Lymphocytes # 2.4 10*3/uL (1.4-4.0); Lymphocytes % 18.8 % (21.2-54.2); Mean Corpuscular HGB Conc 30.2 GM/DL (32-36); Mean Corpuscular Volume 85.9 FL (87-102); Mean Platelet Volume 8.9 FL (9.6-12.0); Monocytes % 9.7 % (1.7-12.7); Neutrophils % 69.4 % (38.7-73.9); Platelet Count 382 T/CUMM (130-400); White Blood Count 12.8 T/CUMM (4-12)
[2021-05-23 06:35] LABS: Calcium 8.4 MG/DL (8.5-10.1); Osmolality,Calculated 281.5 MOS/KG (273-304); Potassium 4.1 MMOL/L (3.5-5.1)
[2021-05-23] MEDS: INSULIN REGULAR 100 UNIT/ML SUBCUT SCH ×4 (09:04→21:20)
[2021-05-23] MEDS: CHOLESTYRAMINE/ASPARTAME 4 GM PACK PO SCH ×2 (09:04→21:14)
[2021-05-23] MEDS: OXYBUTYNIN XL 10 MG TABLET PO SCH (09:05)
[2021-05-23] MEDS: PANTOPRAZOLE 40 MG TABLET PO SCH (09:05)
[2021-05-23] MEDS: SERTRALINE 100 MG TABLET PO SCH (09:05)
[2021-05-23] MEDS: KETOCONAZOLE 2% CREAM 30 GM TUBE TOP SCH ×2 (09:05→21:19)
[2021-05-23] MEDS: cefTRIAXone 2,000 MG in SODIUM CHLORIDE 0.9% 100 ML IV SCH (09:05)
[2021-05-23] MEDS: SODIUM HYPOCHLORITE 0.25% IRRIG 473 ML BOTTLE TOP SCH (09:05)
[2021-05-23] MEDS: oxyCODONE/ACETAMINOPHEN 5-325 MG TABLET PO PRN ×2 (09:06→21:13)
[2021-05-23] MEDS: ENOXAPARIN 40 MG/0.4 ML SYRINGE SUBCUT SCH (11:24)
[2021-05-23] MEDS: MAGNESIUM SULF RIDER 2 GM/50 ML PREMIX IV PRN (11:26)
[2021-05-23] MEDS: MELATONIN 3 MG TABLET PO SCH (21:13)
[2021-05-24 07:01] LABS: Basophils % 0.3 % (0.0-0.8); Eosinophils # 0.1 10*3/uL (0.0-0.87); Eosinophils % 0.9 % (0.00-10.9); Hematocrit 29.1 VOL% (42.0-52.0); Hemoglobin 8.8 GM/DL (14.0-18.0); Immature Granulocytes % 0.5 %; Immature Granulocytes Absolute 0.08 #; Lymphocytes % 13.7 % (21.2-54.2); Mean Corpuscular HGB Conc 30.2 GM/DL (32-36); Mean Corpuscular Volume 87.7 FL (87-102); Mean Platelet Volume 9.3 FL (9.6-12.0); Monocytes % 8.5 % (1.7-12.7); Neutrophils % 76.1 % (38.7-73.9); Platelet Count 412 T/CUMM (130-400); Red Blood Count 3.32 MC/CUMM (3.8-5.5); Red Cell Distribution Width 14.7 % (9.3-17.3); White Blood Count 14.7 T/CUMM (4-12)
[2021-05-24] MEDS: cefTRIAXone 2,000 MG in SODIUM CHLORIDE 0.9% 100 ML IV SCH (09:09)
[2021-05-24] MEDS: OXYBUTYNIN XL 10 MG TABLET PO SCH (09:10)
[2021-05-24] MEDS: SERTRALINE 100 MG TABLET PO SCH (09:10)
[2021-05-24] MEDS: CHOLESTYRAMINE/ASPARTAME 4 GM PACK PO SCH ×2 (09:10→21:41)
[2021-05-24] MEDS: PANTOPRAZOLE 40 MG TABLET PO SCH (09:10)
[2021-05-24] MEDS: SODIUM HYPOCHLORITE 0.25% IRRIG 473 ML BOTTLE TOP SCH (09:10)
[2021-05-24] MEDS: KETOCONAZOLE 2% CREAM 30 GM TUBE TOP SCH ×2 (09:11→21:41)
[2021-05-24] MEDS: ENOXAPARIN 40 MG/0.4 ML SYRINGE SUBCUT SCH (09:11)
[2021-05-24] MEDS: INSULIN REGULAR 100 UNIT/ML SUBCUT SCH ×4 (09:29→23:03)
[2021-05-24] MEDS: oxyCODONE/ACETAMINOPHEN 5-325 MG TABLET PO PRN (11:45)
[2021-05-24] MEDS: MELATONIN 3 MG TABLET PO SCH (21:41)
[2021-05-24] MEDS: LOPERAMIDE 2 MG CAPSULE PO PRN (21:41)
[2021-05-25 05:41] LABS: Basophils % 0.2 % (0.0-0.8); Eosinophils # 0.2 10*3/uL (0.0-0.87); Eosinophils % 1.2 % (0.00-10.9); Hematocrit 28.4 VOL% (42.0-52.0); Hemoglobin 8.6 GM/DL (14.0-18.0); Immature Granulocytes % 0.6 %; Immature Granulocytes Absolute 0.08 #; Lymphocytes # 2.9 10*3/uL (1.4-4.0); Lymphocytes % 22.1 % (21.2-54.2); Mean Corpuscular HGB Conc 30.3 GM/DL (32-36); Mean Corpuscular Volume 85.5 FL (87-102); Mean Platelet Volume 8.8 FL (9.6-12.0); Neutrophils % 66.9 % (38.7-73.9); Platelet Count 384 T/CUMM (130-400); Red Blood Count 3.32 MC/CUMM (3.8-5.5); Red Cell Distribution Width 14.7 % (9.3-17.3); White Blood Count 13.3 T/CUMM (4-12)
[2021-05-25 06:28] LABS: Calcium 8.7 MG/DL (8.5-10.1); Osmolality,Calculated 287.4 MOS/KG (273-304); Potassium 3.9 MMOL/L (3.5-5.1)
[2021-05-25] MEDS: INSULIN REGULAR 100 UNIT/ML SUBCUT SCH ×4 (08:59→20:49)
[2021-05-25] MEDS: OXYBUTYNIN XL 10 MG TABLET PO SCH (09:00)
[2021-05-25] MEDS: SODIUM HYPOCHLORITE 0.25% IRRIG 473 ML BOTTLE TOP SCH (09:00)
[2021-05-25] MEDS: CHOLESTYRAMINE/ASPARTAME 4 GM PACK PO SCH ×2 (09:00→22:14)
[2021-05-25] MEDS: KETOCONAZOLE 2% CREAM 30 GM TUBE TOP SCH ×2 (09:01→20:50)
[2021-05-25] MEDS: PANTOPRAZOLE 40 MG TABLET PO SCH (09:01)
[2021-05-25] MEDS: cefTRIAXone 2,000 MG in SODIUM CHLORIDE 0.9% 100 ML IV SCH (09:01)
[2021-05-25] MEDS: SERTRALINE 100 MG TABLET PO SCH (09:01)
[2021-05-25] MEDS: ENOXAPARIN 40 MG/0.4 ML SYRINGE SUBCUT SCH (09:08)
[2021-05-25] MEDS: oxyCODONE/ACETAMINOPHEN 5-325 MG TABLET PO PRN ×2 (11:39→19:23)
[2021-05-25] MEDS: LOPERAMIDE 2 MG CAPSULE PO PRN (19:23)
[2021-05-25] MEDS: MELATONIN 3 MG TABLET PO SCH (20:49)
[2021-05-26] MEDS: oxyCODONE/ACETAMINOPHEN 5-325 MG TABLET PO PRN ×2 (04:00→22:17)
[2021-05-26 05:57] LABS: Basophils % 0.2 % (0.0-0.8); Eosinophils # 0.1 10*3/uL (0.0-0.87); Eosinophils % 0.8 % (0.00-10.9); Hematocrit 30.1 VOL% (42.0-52.0); Immature Granulocytes % 0.7 %; Lymphocytes # 2.2 10*3/uL (1.4-4.0); Lymphocytes % 15.6 % (21.2-54.2); Mean Corpuscular HGB Conc 29.9 GM/DL (32-36); Mean Corpuscular Volume 89.6 FL (87-102); Mean Platelet Volume 8.9 FL (9.6-12.0); Monocytes % 7.8 % (1.7-12.7); Neutrophils % 74.9 % (38.7-73.9); Platelet Count 371 T/CUMM (130-400); Red Blood Count 3.36 MC/CUMM (3.8-5.5); Red Cell Distribution Width 14.6 % (9.3-17.3); White Blood Count 14.2 T/CUMM (4-12)
[2021-05-26 06:15] LABS: Calcium 9.3 MG/DL (8.5-10.1); Osmolality,Calculated 283.7 MOS/KG (273-304); Potassium 4.1 MMOL/L (3.5-5.1)
[2021-05-26] MEDS: cefTRIAXone 2,000 MG in SODIUM CHLORIDE 0.9% 100 ML IV SCH (09:40)
[2021-05-26] MEDS: OXYBUTYNIN XL 10 MG TABLET PO SCH (09:41)
[2021-05-26] MEDS: CHOLESTYRAMINE/ASPARTAME 4 GM PACK PO SCH ×2 (09:41→22:18)
[2021-05-26] MEDS: SODIUM HYPOCHLORITE 0.25% IRRIG 473 ML BOTTLE TOP SCH (09:41)
[2021-05-26] MEDS: SERTRALINE 100 MG TABLET PO SCH (09:41)
[2021-05-26] MEDS: ENOXAPARIN 40 MG/0.4 ML SYRINGE SUBCUT SCH (09:41)
[2021-05-26] MEDS: PANTOPRAZOLE 40 MG TABLET PO SCH (09:42)
[2021-05-26] MEDS: INSULIN REGULAR 100 UNIT/ML SUBCUT SCH ×4 (09:58→22:18)
[2021-05-26] MEDS: KETOCONAZOLE 2% CREAM 30 GM TUBE TOP SCH ×2 (09:59→22:18)
[2021-05-26] MEDS: MELATONIN 3 MG TABLET PO SCH (22:17)
[2021-05-26] MEDS: LOPERAMIDE 2 MG CAPSULE PO PRN (22:18)
[2021-05-27 04:50] LABS: Basophils # 0.1 10*3/uL (0.0-0.2); Basophils % 0.4 % (0.0-0.8); Eosinophils # 0.1 10*3/uL (0.0-0.87); Eosinophils % 0.5 % (0.00-10.9); Hematocrit 28.7 VOL% (42.0-52.0); Hemoglobin 8.7 GM/DL (14.0-18.0); Immature Granulocytes % 0.6 %; Immature Granulocytes Absolute 0.09 #; Lymphocytes # 2.3 10*3/uL (1.4-4.0); Lymphocytes % 16.1 % (21.2-54.2); Mean Corpuscular HGB Conc 30.3 GM/DL (32-36); Mean Corpuscular Volume 86.7 FL (87-102); Mean Platelet Volume 9.4 FL (9.6-12.0); Monocytes % 6.9 % (1.7-12.7); Neutrophils % 75.5 % (38.7-73.9); Platelet Count 386 T/CUMM (130-400); Red Blood Count 3.31 MC/CUMM (3.8-5.5); White Blood Count 14.1 T/CUMM (4-12)
[2021-05-27 05:13] LABS: Calcium 9.2 MG/DL (8.5-10.1); Osmolality,Calculated 276.7 MOS/KG (273-304); Potassium 4.7 MMOL/L (3.5-5.1)
[2021-05-27] MEDS: INSULIN REGULAR 100 UNIT/ML SUBCUT SCH ×4 (08:06→21:17)
[2021-05-27] MEDS: CHOLESTYRAMINE/ASPARTAME 4 GM PACK PO SCH ×2 (09:39→21:17)
[2021-05-27] MEDS: OXYBUTYNIN XL 10 MG TABLET PO SCH (09:40)
[2021-05-27] MEDS: ENOXAPARIN 40 MG/0.4 ML SYRINGE SUBCUT SCH (09:40)
[2021-05-27] MEDS: SERTRALINE 100 MG TABLET PO SCH (09:40)
[2021-05-27] MEDS: PANTOPRAZOLE 40 MG TABLET PO SCH (09:40)
[2021-05-27] MEDS: cefTRIAXone 2,000 MG in SODIUM CHLORIDE 0.9% 100 ML IV SCH (09:40)
[2021-05-27] MEDS: KETOCONAZOLE 2% CREAM 30 GM TUBE TOP SCH ×2 (09:45→21:17)
[2021-05-27] MEDS: SODIUM HYPOCHLORITE 0.25% IRRIG 473 ML BOTTLE TOP SCH (17:00)
[2021-05-27] MEDS: oxyCODONE/ACETAMINOPHEN 5-325 MG TABLET PO PRN (18:02)
[2021-05-27] MEDS: LOPERAMIDE 2 MG CAPSULE PO PRN (21:17)
[2021-05-27] MEDS: MELATONIN 3 MG TABLET PO SCH (21:17)
[2021-05-28] MEDS: KETOCONAZOLE 2% CREAM 30 GM TUBE TOP SCH ×2 (09:57→21:24)
[2021-05-28] MEDS: SODIUM HYPOCHLORITE 0.25% IRRIG 473 ML BOTTLE TOP SCH (09:57)
[2021-05-28] MEDS: INSULIN REGULAR 100 UNIT/ML SUBCUT SCH ×4 (09:57→21:24)
[2021-05-28] MEDS: OXYBUTYNIN XL 10 MG TABLET PO SCH (09:57)
[2021-05-28] MEDS: SERTRALINE 100 MG TABLET PO SCH (09:57)
[2021-05-28] MEDS: PANTOPRAZOLE 40 MG TABLET PO SCH (09:57)
[2021-05-28] MEDS: ENOXAPARIN 40 MG/0.4 ML SYRINGE SUBCUT SCH (09:58)
[2021-05-28] MEDS: CHOLESTYRAMINE/ASPARTAME 4 GM PACK PO SCH ×2 (09:58→21:26)
[2021-05-28] MEDS: cefTRIAXone 2,000 MG in SODIUM CHLORIDE 0.9% 100 ML IV SCH (15:08)
[2021-05-28] MEDS: oxyCODONE/ACETAMINOPHEN 5-325 MG TABLET PO PRN (15:14)
[2021-05-28] MEDS: ACETAMINOPHEN 325 MG TABLET PO PRN (16:15)
[2021-05-28] MEDS: MELATONIN 3 MG TABLET PO SCH (21:24)
[2021-05-29 06:30] LABS: Basophils % 0.2 % (0.0-0.8); Eosinophils # 0.1 10*3/uL (0.0-0.87); Eosinophils % 0.5 % (0.00-10.9); Hematocrit 29.8 VOL% (42.0-52.0); Hemoglobin 9.2 GM/DL (14.0-18.0); Immature Granulocytes % 0.3 %; Immature Granulocytes Absolute 0.05 #; Lymphocytes # 2.3 10*3/uL (1.4-4.0); Mean Corpuscular HGB Conc 30.9 GM/DL (32-36); Mean Corpuscular Volume 86.9 FL (87-102); Mean Platelet Volume 9.2 FL (9.6-12.0); Monocytes % 7.9 % (1.7-12.7); Neutrophils % 76.1 % (38.7-73.9); Platelet Count 406 T/CUMM (130-400); Red Blood Count 3.43 MC/CUMM (3.8-5.5); Red Cell Distribution Width 14.8 % (9.3-17.3); White Blood Count 15.4 T/CUMM (4-12)
[2021-05-29 06:56] LABS: Calcium 8.8 MG/DL (8.5-10.1); Osmolality,Calculated 277.5 MOS/KG (273-304); Potassium 3.8 MMOL/L (3.5-5.1)
[2021-05-29] MEDS: INSULIN REGULAR 100 UNIT/ML SUBCUT SCH ×4 (09:13→23:03)
[2021-05-29] MEDS: CHOLESTYRAMINE/ASPARTAME 4 GM PACK PO SCH ×2 (09:13→23:03)
[2021-05-29] MEDS: SERTRALINE 100 MG TABLET PO SCH (09:14)
[2021-05-29] MEDS: ERGOCALCIFEROL 50,000 UNIT CAPSULE PO SCH (09:14)
[2021-05-29] MEDS: PANTOPRAZOLE 40 MG TABLET PO SCH (09:14)
[2021-05-29] MEDS: ENOXAPARIN 40 MG/0.4 ML SYRINGE SUBCUT SCH (09:14)
[2021-05-29] MEDS: OXYBUTYNIN XL 10 MG TABLET PO SCH (09:14)
[2021-05-29] MEDS: KETOCONAZOLE 2% CREAM 30 GM TUBE TOP SCH ×2 (09:30→23:03)
[2021-05-29] MEDS: SODIUM HYPOCHLORITE 0.25% IRRIG 473 ML BOTTLE TOP SCH (09:30)
[2021-05-29] MEDS: MAGNESIUM SULF RIDER 2 GM/50 ML PREMIX IV PRN (09:52)
[2021-05-29] MEDS: oxyCODONE/ACETAMINOPHEN 5-325 MG TABLET PO PRN ×2 (12:38→20:51)
[2021-05-29] MEDS: cefTRIAXone 2,000 MG in SODIUM CHLORIDE 0.9% 100 ML IV SCH (13:00)
[2021-05-29] MEDS ORDERED: SODIUM CHLORIDE 0.9% 250 ML IV ONE (17:31)
[2021-05-29] MEDS: MELATONIN 3 MG TABLET PO SCH (20:50)
[2021-05-30 06:11] LABS: Basophils # 0.1 10*3/uL (0.0-0.2); Basophils % 0.3 % (0.0-0.8); Eosinophils # 0.1 10*3/uL (0.0-0.87); Eosinophils % 0.6 % (0.00-10.9); Hematocrit 30.2 VOL% (42.0-52.0); Hemoglobin 9.1 GM/DL (14.0-18.0); Immature Granulocytes % 0.6 %; Immature Granulocytes Absolute 0.09 #; Lymphocytes # 2.6 10*3/uL (1.4-4.0); Lymphocytes % 15.9 % (21.2-54.2); Mean Corpuscular HGB Conc 30.1 GM/DL (32-36); Mean Corpuscular Volume 86.5 FL (87-102); Mean Platelet Volume 9.3 FL (9.6-12.0); Monocytes % 8.9 % (1.7-12.7); Neutrophils % 73.7 % (38.7-73.9); Platelet Count 398 T/CUMM (130-400); Red Blood Count 3.49 MC/CUMM (3.8-5.5)
[2021-05-30 06:43] LABS: Osmolality,Calculated 271.1 MOS/KG (273-304)
[2021-05-30] MEDS: INSULIN REGULAR 100 UNIT/ML SUBCUT SCH ×4 (07:43→21:25)
[2021-05-30] MEDS: OXYBUTYNIN XL 10 MG TABLET PO SCH (09:29)
[2021-05-30] MEDS: PANTOPRAZOLE 40 MG TABLET PO SCH (09:29)
[2021-05-30] MEDS: ENOXAPARIN 40 MG/0.4 ML SYRINGE SUBCUT SCH (09:30)
[2021-05-30] MEDS: LOPERAMIDE 2 MG CAPSULE PO PRN (09:30)
[2021-05-30] MEDS: SODIUM HYPOCHLORITE 0.25% IRRIG 473 ML BOTTLE TOP SCH (09:30)
[2021-05-30] MEDS: CHOLESTYRAMINE/ASPARTAME 4 GM PACK PO SCH ×2 (09:30→21:26)
[2021-05-30] MEDS: SERTRALINE 25 MG TABLET PO SCH (09:30)
[2021-05-30] MEDS: KETOCONAZOLE 2% CREAM 30 GM TUBE TOP SCH ×2 (09:31→20:25)
[2021-05-30] MEDS: cefTRIAXone 2,000 MG in SODIUM CHLORIDE 0.9% 100 ML IV SCH (13:59)
[2021-05-30] MEDS: oxyCODONE/ACETAMINOPHEN 5-325 MG TABLET PO PRN (18:04)
[2021-05-30] MEDS: MELATONIN 3 MG TABLET PO SCH (20:25)
[2021-05-30] MEDS: ACETAMINOPHEN 325 MG TABLET PO PRN (22:32)
[2021-05-31 05:17] LABS: Basophils # 0.1 10*3/uL (0.0-0.2); Basophils % 0.4 % (0.0-0.8); Eosinophils # 0.1 10*3/uL (0.0-0.87); Eosinophils % 0.8 % (0.00-10.9); Hematocrit 29.7 VOL% (42.0-52.0); Hemoglobin 9.2 GM/DL (14.0-18.0); Immature Granulocytes % 0.4 %; Immature Granulocytes Absolute 0.06 #; Lymphocytes # 2.9 10*3/uL (1.4-4.0); Lymphocytes % 20.4 % (21.2-54.2); Mean Corpuscular Volume 86.1 FL (87-102); Mean Platelet Volume 8.9 FL (9.6-12.0); Monocytes % 9.3 % (1.7-12.7); Neutrophils % 68.7 % (38.7-73.9); Platelet Count 401 T/CUMM (130-400); Red Blood Count 3.45 MC/CUMM (3.8-5.5); Red Cell Distribution Width 14.8 % (9.3-17.3); White Blood Count 14.2 T/CUMM (4-12)
[2021-05-31 08:10] LABS: Calcium 9.3 MG/DL (8.5-10.1); Osmolality,Calculated 277.5 MOS/KG (273-304); Potassium 4.1 MMOL/L (3.5-5.1)
[2021-05-31] MEDS: ENOXAPARIN 40 MG/0.4 ML SYRINGE SUBCUT SCH (09:45)
[2021-05-31] MEDS: SERTRALINE 25 MG TABLET PO SCH (09:46)
[2021-05-31] MEDS: CHOLESTYRAMINE/ASPARTAME 4 GM PACK PO SCH ×2 (09:46→21:39)
[2021-05-31] MEDS: SODIUM HYPOCHLORITE 0.25% IRRIG 473 ML BOTTLE TOP SCH (09:46)
[2021-05-31] MEDS: INSULIN REGULAR 100 UNIT/ML SUBCUT SCH ×4 (09:46→21:47)
[2021-05-31] MEDS: KETOCONAZOLE 2% CREAM 30 GM TUBE TOP SCH ×2 (09:46→21:50)
[2021-05-31] MEDS: OXYBUTYNIN XL 10 MG TABLET PO SCH (09:46)
[2021-05-31] MEDS: PANTOPRAZOLE 40 MG TABLET PO SCH (09:46)
[2021-05-31] MEDS: cefTRIAXone 2,000 MG in SODIUM CHLORIDE 0.9% 100 ML IV SCH (13:49)
[2021-05-31] MEDS: MELATONIN 3 MG TABLET PO SCH (21:39)
[2021-05-31] MEDS: oxyCODONE/ACETAMINOPHEN 5-325 MG TABLET PO PRN (21:41)
[2021-06-01 09:31] LABS: Basophils % 0.3 % (0.0-0.8); Eosinophils # 0.1 10*3/uL (0.0-0.87); Eosinophils % 0.7 % (0.00-10.9); Hematocrit 29.9 VOL% (42.0-52.0); Hemoglobin 9.3 GM/DL (14.0-18.0); Immature Granulocytes % 0.5 %; Immature Granulocytes Absolute 0.07 #; Lymphocytes # 2.9 10*3/uL (1.4-4.0); Mean Corpuscular HGB Conc 31.1 GM/DL (32-36); Mean Corpuscular Volume 84.7 FL (87-102); Monocytes % 9.4 % (1.7-12.7); Neutrophils % 70.1 % (38.7-73.9); Platelet Count 397 T/CUMM (130-400); Red Blood Count 3.53 MC/CUMM (3.8-5.5); Red Cell Distribution Width 14.8 % (9.3-17.3); White Blood Count 15.2 T/CUMM (4-12)
[2021-06-01 09:56] LABS: Calcium 9.4 MG/DL (8.5-10.1); Osmolality,Calculated 273.2 MOS/KG (273-304); Potassium 4.1 MMOL/L (3.5-5.1)
[2021-06-01] MEDS: INSULIN REGULAR 100 UNIT/ML SUBCUT SCH ×4 (10:04→21:42)
[2021-06-01] MEDS: ENOXAPARIN 40 MG/0.4 ML SYRINGE SUBCUT SCH (10:06)
[2021-06-01] MEDS: OXYBUTYNIN XL 10 MG TABLET PO SCH (10:07)
[2021-06-01] MEDS: SERTRALINE 25 MG TABLET PO SCH (10:07)
[2021-06-01] MEDS: CYCLOBENZAPRINE 10 MG TABLET PO PRN (10:07)
[2021-06-01] MEDS: CHOLESTYRAMINE/ASPARTAME 4 GM PACK PO SCH ×2 (10:07→21:43)
[2021-06-01] MEDS: PANTOPRAZOLE 40 MG TABLET PO SCH (10:07)
[2021-06-01] MEDS: KETOCONAZOLE 2% CREAM 30 GM TUBE TOP SCH ×2 (10:08→21:43)
[2021-06-01] MEDS: SODIUM HYPOCHLORITE 0.25% IRRIG 473 ML BOTTLE TOP SCH (10:08)
[2021-06-01] MEDS: cefTRIAXone 2,000 MG in SODIUM CHLORIDE 0.9% 100 ML IV SCH (17:41)
[2021-06-01] MEDS: oxyCODONE/ACETAMINOPHEN 5-325 MG TABLET PO PRN (21:43)
[2021-06-01] MEDS: MELATONIN 3 MG TABLET PO SCH (21:43)
[2021-06-02 05:13] LABS: Basophils # 0.1 10*3/uL (0.0-0.2); Basophils % 0.3 % (0.0-0.8); Eosinophils # 0.1 10*3/uL (0.0-0.87); Eosinophils % 0.4 % (0.00-10.9); Hematocrit 30.2 VOL% (42.0-52.0); Hemoglobin 9.1 GM/DL (14.0-18.0); Immature Granulocytes % 0.6 %; Lymphocytes # 2.2 10*3/uL (1.4-4.0); Lymphocytes % 11.9 % (21.2-54.2); Mean Corpuscular HGB Conc 30.1 GM/DL (32-36); Mean Corpuscular Volume 87.8 FL (87-102); Monocytes % 6.3 % (1.7-12.7); Neutrophils % 80.5 % (38.7-73.9); Platelet Count 388 T/CUMM (130-400); Red Blood Count 3.44 MC/CUMM (3.8-5.5); Red Cell Distribution Width 14.8 % (9.3-17.3); White Blood Count 18.1 T/CUMM (4-12)
[2021-06-02 05:38] LABS: Calcium 9.4 MG/DL (8.5-10.1); Osmolality,Calculated 274.7 MOS/KG (273-304)
[2021-06-02 09:10] LABS: % Iron Saturation 12.2 % (18-50)
[2021-06-02 09:44] LABS: Folate 3.5 NG/ML (5.38-24.0)
[2021-06-02] MEDS: INSULIN REGULAR 100 UNIT/ML SUBCUT SCH ×4 (10:00→22:03)
[2021-06-02] MEDS: SERTRALINE 25 MG TABLET PO SCH (11:10)
[2021-06-02] MEDS: OXYBUTYNIN XL 10 MG TABLET PO SCH (11:10)
[2021-06-02] MEDS: PANTOPRAZOLE 40 MG TABLET PO SCH (11:10)
[2021-06-02] MEDS: CHOLESTYRAMINE/ASPARTAME 4 GM PACK PO SCH ×2 (11:11→22:04)
[2021-06-02] MEDS: ENOXAPARIN 40 MG/0.4 ML SYRINGE SUBCUT SCH (11:11)
[2021-06-02] MEDS: cefTRIAXone 2,000 MG in SODIUM CHLORIDE 0.9% 100 ML IV SCH (16:16)
[2021-06-02] MEDS: MELATONIN 3 MG TABLET PO SCH (22:04)
[2021-06-02] MEDS: MORPHINE 2 MG/1 ML SYRINGE IV PRN (22:19)
[2021-06-02] MEDS: KETOCONAZOLE 2% CREAM 30 GM TUBE TOP SCH (22:25)
[2021-06-03] MEDS: OXYBUTYNIN XL 10 MG TABLET PO SCH (09:07)
[2021-06-03] MEDS: PANTOPRAZOLE 40 MG TABLET PO SCH (09:07)
[2021-06-03] MEDS: CHOLESTYRAMINE/ASPARTAME 4 GM PACK PO SCH ×2 (09:07→22:34)
[2021-06-03] MEDS: SERTRALINE 25 MG TABLET PO SCH (09:07)
[2021-06-03] MEDS: INSULIN REGULAR 100 UNIT/ML SUBCUT SCH ×4 (09:08→22:33)
[2021-06-03] MEDS: ENOXAPARIN 40 MG/0.4 ML SYRINGE SUBCUT SCH (09:10)
[2021-06-03] MEDS: SODIUM HYPOCHLORITE 0.25% IRRIG 473 ML BOTTLE TOP SCH ×2 (12:40→15:20)
[2021-06-03] MEDS: KETOCONAZOLE 2% CREAM 30 GM TUBE TOP SCH ×3 (12:41→22:34)
[2021-06-03] MEDS: cefTRIAXone 2,000 MG in SODIUM CHLORIDE 0.9% 100 ML IV SCH (13:28)
[2021-06-03] MEDS: oxyCODONE/ACETAMINOPHEN 5-325 MG TABLET PO PRN ×2 (13:44→22:34)
[2021-06-03] MEDS: MELATONIN 3 MG TABLET PO SCH (22:34)
[2021-06-03] MEDS: MORPHINE 2 MG/1 ML SYRINGE IV PRN (23:57)
[2021-06-04] MEDS: oxyCODONE/ACETAMINOPHEN 5-325 MG TABLET PO PRN (05:41)
[2021-06-04] MEDS: INSULIN REGULAR 100 UNIT/ML SUBCUT SCH ×3 (08:48→21:41)
[2021-06-04] MEDS: PANTOPRAZOLE 40 MG TABLET PO SCH (09:35)
[2021-06-04] MEDS: SERTRALINE 25 MG TABLET PO SCH (09:35)
[2021-06-04] MEDS: OXYBUTYNIN XL 10 MG TABLET PO SCH (09:35)
[2021-06-04] MEDS: CHOLESTYRAMINE/ASPARTAME 4 GM PACK PO SCH ×2 (09:38→21:38)
[2021-06-04] MEDS: KETOCONAZOLE 2% CREAM 30 GM TUBE TOP SCH ×2 (09:39→21:39)
[2021-06-04] MEDS: ENOXAPARIN 40 MG/0.4 ML SYRINGE SUBCUT SCH (09:40)
[2021-06-04] MEDS: SODIUM HYPOCHLORITE 0.25% IRRIG 473 ML BOTTLE TOP SCH (16:29)
[2021-06-04] MEDS: ACETAMINOPHEN 325 MG TABLET PO PRN (20:00)
[2021-06-04] MEDS: MELATONIN 3 MG TABLET PO SCH (21:39)
[2021-06-04] MEDS: MORPHINE 2 MG/1 ML SYRINGE IV PRN (21:57)
[2021-06-05] MEDS: INSULIN REGULAR 100 UNIT/ML SUBCUT SCH ×4 (08:08→22:10)
[2021-06-05] MEDS: SODIUM HYPOCHLORITE 0.25% IRRIG 473 ML BOTTLE TOP SCH (09:20)
[2021-06-05] MEDS: ERGOCALCIFEROL 50,000 UNIT CAPSULE PO SCH (09:21)
[2021-06-05] MEDS: OXYBUTYNIN XL 10 MG TABLET PO SCH (09:21)
[2021-06-05] MEDS: KETOCONAZOLE 2% CREAM 30 GM TUBE TOP SCH ×2 (09:21→22:10)
[2021-06-05] MEDS: ENOXAPARIN 40 MG/0.4 ML SYRINGE SUBCUT SCH (09:22)
[2021-06-05] MEDS: SERTRALINE 25 MG TABLET PO SCH (09:22)
[2021-06-05] MEDS: PANTOPRAZOLE 40 MG TABLET PO SCH (09:22)
[2021-06-05] MEDS: CHOLESTYRAMINE/ASPARTAME 4 GM PACK PO SCH ×3 (09:22→23:47)
[2021-06-05] MEDS: MORPHINE 2 MG/1 ML SYRINGE IV PRN (20:22)
[2021-06-05] MEDS: MELATONIN 3 MG TABLET PO SCH (20:22)
[2021-06-05] MEDS: LOPERAMIDE 2 MG CAPSULE PO PRN (22:08)
[2021-06-05] MEDS: CYCLOBENZAPRINE 10 MG TABLET PO PRN (22:08)
[2021-06-06] MEDS: INSULIN REGULAR 100 UNIT/ML SUBCUT SCH ×4 (08:58→20:58)
[2021-06-06] MEDS: OXYBUTYNIN XL 10 MG TABLET PO SCH (08:58)
[2021-06-06] MEDS: SERTRALINE 25 MG TABLET PO SCH (08:58)
[2021-06-06] MEDS: PANTOPRAZOLE 40 MG TABLET PO SCH (08:59)
[2021-06-06] MEDS: ENOXAPARIN 40 MG/0.4 ML SYRINGE SUBCUT SCH (09:00)
[2021-06-06] MEDS: CHOLESTYRAMINE/ASPARTAME 4 GM PACK PO SCH ×2 (09:00→22:29)
[2021-06-06] MEDS: SODIUM HYPOCHLORITE 0.25% IRRIG 473 ML BOTTLE TOP SCH (09:00)
[2021-06-06] MEDS: KETOCONAZOLE 2% CREAM 30 GM TUBE TOP SCH ×2 (09:00→20:54)
[2021-06-06] MEDS: MORPHINE 2 MG/1 ML SYRINGE IV PRN (17:40)
[2021-06-06] MEDS: MELATONIN 3 MG TABLET PO SCH (20:54)
[2021-06-06] MEDS: CYCLOBENZAPRINE 10 MG TABLET PO PRN (20:57)
[2021-06-06] MEDS: oxyCODONE/ACETAMINOPHEN 5-325 MG TABLET PO PRN (20:58)
[2021-06-07] MEDS: INSULIN REGULAR 100 UNIT/ML SUBCUT SCH ×4 (08:16→22:32)
[2021-06-07] MEDS: CHOLESTYRAMINE/ASPARTAME 4 GM PACK PO SCH ×2 (09:16→21:53)
[2021-06-07] MEDS: PANTOPRAZOLE 40 MG TABLET PO SCH (09:16)
[2021-06-07] MEDS: OXYBUTYNIN XL 10 MG TABLET PO SCH (09:16)
[2021-06-07] MEDS: SERTRALINE 25 MG TABLET PO SCH (09:16)
[2021-06-07] MEDS: ENOXAPARIN 40 MG/0.4 ML SYRINGE SUBCUT SCH (11:46)
[2021-06-07] MEDS: oxyCODONE/ACETAMINOPHEN 5-325 MG TABLET PO PRN ×2 (11:59→19:32)
[2021-06-07] MEDS: SODIUM HYPOCHLORITE 0.25% IRRIG 473 ML BOTTLE TOP SCH (14:50)
[2021-06-07] MEDS: KETOCONAZOLE 2% CREAM 30 GM TUBE TOP SCH ×2 (14:50→22:32)
[2021-06-07] MEDS: MELATONIN 3 MG TABLET PO SCH (21:53)
[2021-06-08] MEDS: SODIUM HYPOCHLORITE 0.25% IRRIG 473 ML BOTTLE TOP SCH ×2 (04:30→09:26)
[2021-06-08] MEDS: oxyCODONE/ACETAMINOPHEN 5-325 MG TABLET PO PRN ×3 (06:14→23:53)
[2021-06-08] MEDS: KETOCONAZOLE 2% CREAM 30 GM TUBE TOP SCH ×2 (09:24→21:22)
[2021-06-08] MEDS: INSULIN REGULAR 100 UNIT/ML SUBCUT SCH ×4 (09:25→22:34)
[2021-06-08] MEDS: ENOXAPARIN 40 MG/0.4 ML SYRINGE SUBCUT SCH (09:25)
[2021-06-08] MEDS: CHOLESTYRAMINE/ASPARTAME 4 GM PACK PO SCH ×2 (09:26→21:22)
[2021-06-08] MEDS: PANTOPRAZOLE 40 MG TABLET PO SCH (09:26)
[2021-06-08] MEDS: SERTRALINE 25 MG TABLET PO SCH (09:26)
[2021-06-08] MEDS: OXYBUTYNIN XL 10 MG TABLET PO SCH (09:26)
[2021-06-08] MEDS: ACETAMINOPHEN 325 MG TABLET PO PRN (17:54)
[2021-06-08] MEDS: MELATONIN 3 MG TABLET PO SCH (21:22)
[2021-06-08] MEDS: MORPHINE 2 MG/1 ML SYRINGE IV PRN (21:23)
[2021-06-09] MEDS: SERTRALINE 25 MG TABLET PO SCH (09:24)
[2021-06-09] MEDS: PANTOPRAZOLE 40 MG TABLET PO SCH (09:24)
[2021-06-09] MEDS: CHOLESTYRAMINE/ASPARTAME 4 GM PACK PO SCH ×2 (09:24→21:05)
[2021-06-09] MEDS: OXYBUTYNIN XL 10 MG TABLET PO SCH (09:24)
[2021-06-09] MEDS: ACETAMINOPHEN 325 MG TABLET PO PRN ×2 (09:24→18:08)
[2021-06-09] MEDS: ENOXAPARIN 40 MG/0.4 ML SYRINGE SUBCUT SCH (09:24)
[2021-06-09] MEDS: SODIUM HYPOCHLORITE 0.25% IRRIG 473 ML BOTTLE TOP SCH (09:25)
[2021-06-09] MEDS: INSULIN REGULAR 100 UNIT/ML SUBCUT SCH ×4 (09:25→22:46)
[2021-06-09] MEDS: KETOCONAZOLE 2% CREAM 30 GM TUBE TOP SCH (09:25)
[2021-06-09] MEDS ORDERED: KETOCONAZOLE 2% CREAM 30 GM TUBE TOP PRN (12:47)
[2021-06-09] MEDS: oxyCODONE/ACETAMINOPHEN 5-325 MG TABLET PO PRN (18:16)
[2021-06-09] MEDS: LOPERAMIDE 2 MG CAPSULE PO PRN (21:05)
[2021-06-09] MEDS: MELATONIN 3 MG TABLET PO SCH (21:05)
[2021-06-10] MEDS: oxyCODONE/ACETAMINOPHEN 5-325 MG TABLET PO PRN ×2 (07:10→18:13)
[2021-06-10] MEDS: INSULIN REGULAR 100 UNIT/ML SUBCUT SCH ×4 (09:58→22:55)
[2021-06-10] MEDS: OXYBUTYNIN XL 10 MG TABLET PO SCH (09:59)
[2021-06-10] MEDS: SERTRALINE 25 MG TABLET PO SCH (09:59)
[2021-06-10] MEDS: PANTOPRAZOLE 40 MG TABLET PO SCH (09:59)
[2021-06-10] MEDS: CHOLESTYRAMINE/ASPARTAME 4 GM PACK PO SCH ×2 (09:59→22:56)
[2021-06-10] MEDS: ENOXAPARIN 40 MG/0.4 ML SYRINGE SUBCUT SCH (09:59)
[2021-06-10] MEDS: SODIUM HYPOCHLORITE 0.25% IRRIG 473 ML BOTTLE TOP SCH (10:02)
[2021-06-10] MEDS: MELATONIN 3 MG TABLET PO SCH (22:55)
[2021-06-10] MEDS: LOPERAMIDE 2 MG CAPSULE PO PRN (22:56)
[2021-06-11] MEDS: oxyCODONE/ACETAMINOPHEN 5-325 MG TABLET PO PRN (05:38)
[2021-06-11] MEDS: PANTOPRAZOLE 40 MG TABLET PO SCH (08:58)
[2021-06-11] MEDS: INSULIN REGULAR 100 UNIT/ML SUBCUT SCH ×3 (08:58→16:45)
[2021-06-11] MEDS: OXYBUTYNIN XL 10 MG TABLET PO SCH (08:58)
[2021-06-11] MEDS: SERTRALINE 25 MG TABLET PO SCH (08:58)
[2021-06-11] MEDS: ACETAMINOPHEN 325 MG TABLET PO PRN (09:03)
[2021-06-11] MEDS: CHOLESTYRAMINE/ASPARTAME 4 GM PACK PO SCH (09:43)
[2021-06-11] MEDS: ENOXAPARIN 40 MG/0.4 ML SYRINGE SUBCUT SCH (09:43)
[2021-06-11] MEDS: SODIUM HYPOCHLORITE 0.25% IRRIG 473 ML BOTTLE TOP SCH (09:43)
[2021-06-11 15:39] VITALS: BP 114/71
== END 2021-06-11 16:45 | disposition home or self-care (01) | DRG 853 ==
LOC: N.ED 12:08 → SUATTDRO 04-21 03:03 → N.EDINP 04-21 03:03 → N.ICU 04-21 12:24 → N.3E 04-29 13:55
PROVIDERS: ADMIT Emergency Medicine; ATTEND Emergency Medicine